=== PATIENT | male | born 1965 | race Caucasian/White ===

== ENCOUNTER 2017-06-27 20:45 | Emergency (ER) | payer MEDICARE ==
--- NOTE | 2017-06-27 21:14 | ERPHSYRPT ---
- History of Present Illness Time Seen by Provider: 06/27/17 20:47 Source: patient, family (mother) Physician History: CC: blood in urine Hx: 51 y/o patient of Dr Romo with mentally challenged. He has staff and mother is close support. He drank patti today. He had two episodes of bright red blood in the urine. No injury. No stool. No blood thinners. No hx of this in the past. Mom saw the blood in the toilet. Mild suprapubic discomfort. Some dysuria today. Timing/Duration: today Allergies/Adverse Reactions: latex [Latex] Allergy (Verified 05/28/16 20:25) BLEACH Allergy (Mild, Uncoded 05/28/16 20:25) Home Medications: Haloperidol 0.5 mg PO DAILY 05/28/16 [History] Haloperidol 1 mg [Haldol 1 mg] 1 mg PO HS 05/28/16 [History] Hydroxyzine HCl 50 mg PO HS 05/28/16 [History] Lamotrigine [Lamictal] 150 mg PO HS 05/28/16 [History] Levothyroxine Sodium 100 Mcg [Synthroid 100 Mcg] 50 mcg PO DAILY 05/28/16 [ History] Metformin HCl 500 mg [Glucophage 500 MG] 500 mg PO BID 05/28/16 [History] Omeprazole [Prilosec] 40 mg PO BID 05/28/16 [History] Rosuvastatin Calcium [Crestor] 10 mg PO HS 05/28/16 [History] Brimonidine Tartrate/Timolol [Combigan 0.2%-0.5% Eye Drops] 1 drop OP BID [History] Docusate Sodium 100 mg [Colace 100 MG] 100 mg PO BID 06/27/17 [History] Multivitamin W-Minerals/Lutein [Cerovite Silver Tablet] 1 each PO DAILY [History] Hx Tetanus, Diphtheria Vaccination/Date Given: Yes Hx Influenza Vaccination/Date Given: Yes Hx Pneumococcal Vaccination/Date Given: No - Past Medical History Pertinent Past Medical History: Yes Neurological History: Other ENT History: Other Cardiac History: No Pertinent History Respiratory History: No Pertinent History Endocrine Medical History: Diabetes Type II Musculoskeletal History: Other GI Medical History: Esophageal Disorder, GERD History: No Pertinent History Psycho-Social History: Anxiety, Depression Male Reproductive Disorders: No Pertinent History Other Medical History: 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 EXPLOSIVE DISORDER. Mild Mental Retardation. Behavior Disorder. 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 AT 2 - Social History Smoking Status: Never smoker Exposure to second hand smoke: No Alcohol Use: None Drug Use: none Patient Lives Alone: Yes Significant Family History: no pertinent family hx - Review of Systems Constitutional: No Fever, No Chills Genitourinary Symptoms: Dysuria, Hematuria, No Flank Pain Skin: No Rash Neurological: No Focal Weakness, No Parasthesia Hematologic/Lymphatic: No Blood Clots, No Easy Bleeding, No Easy Bruising All Other Systems: Reviewed and Negative - Nursing Vital Signs Nursing Vital Signs: Initial Vital Signs Temperature 97.3 F 06/27/17 20:51 Pulse Rate 85 06/27/17 20:51 Respiratory Rate 16 06/27/17 20:51 Blood Pressure 139/96 06/27/17 20:51 O2 Sat by Pulse Oximetry 97 06/27/17 20:51 Pain Scale Pain Intensity 1 - Physical Exam General Appearance: alert Ears, Nose, Throat Exam: dry mucous membranes Neck Exam: supple Respiratory Exam: normal breath sounds Cardiovascular Exam: regular rate/rhythm Gastrointestinal/Abdomen Exam: soft, No tenderness, No distention, No mass, No guarding Male Genital Exam: normal genitalia, no hernia, circumcised (nl phallus, some nonbleeding scrotal varicosities), No testicular tenderness (R), No testicular tenderness (L), No urethral discharge Extremity Exam: normal inspection, normal range of motion Neurologic Exam: alert, oriented x 3, cooperative Skin Exam: warm, dry, No rash - Course Nursing assessment & vital signs reviewed: Yes Ordered Tests: Active Orders 24 hr Category Date Time Status Clean Catch Urine Specimen STAT Care 06/27/17 20:52 Active BMP Stat Lab 06/27/17 21:25 Completed CBC W DIFF Stat Lab 12/02/17 21:25 Completed CULTURE,URINE Stat Lab 06/27/17 21:04 Received UA W/ MICROSCOPIC Stat Lab 06/27/17 21:04 Completed Lab/Rad Data: Laboratory Result Diagrams 06/27/17 21:25 06/27/17 21:25 Laboratory Results 06/27/17 06/27/17 06/27/17 Range/Units 21:25 21:25 21:04 WBC 9.2 (4.0-10.5) K/mm3 RBC 4.73 (4.1-5.6) M/mm3 Hgb 14.4 (12.5-18.0) gm/dl Hct 43.5 (42-50) % MCV 92.0 (78-100) fl MCH 30.4 (26-32) pg MCHC 33.1 (32-36) g/dl RDW 12.9 (11.5-14.0) % Plt Count 345 (150-450) K/mm3 MPV 10.2 H (6-9.5) fl Gran % 43.0 (36.0-66.0) % Lymphocytes % 44.9 H (24.0-44.0) % Monocytes % 8.2 (0.0-12.0) % Eosinophils % 3.7 (0.00-5.0) % Basophils % 0.2 (0.0-0.4) % Basophils # 0.02 (0-0.4) Sodium 141 (136-145) mEq/L Potassium 4.0 (3.5-5.1) mEq/L Chloride 103 (98-107) mEq/L Carbon Dioxide 25.2 (21-32) mEq/L Anion Gap 16.7 H (5-15) MEQ/L BUN 11 (9-20) mg/dL Creatinine 1.23 (0.55-1.30) mg/dl Estimated GFR > 60 ML/MIN Glucose 117 H (70-110) MG/DL Calcium 9.2 (8.5-10.1) mg/dL Ur Collection Type VOID Urine Color LT.YELLOW (YELLOW) Urine Appearance CLEAR (CLEAR) Urine pH 5.0 (5-6) Ur Specific [place] 1.005 (1.005-1.025) Urine Protein NEGATIVE (Negative) Urine Ketones NEGATIVE (NEGATIVE) Urine Blood 250 (0-5) Vince/ul Urine Nitrite NEGATIVE (NEGATIVE) Urine Bilirubin NEGATIVE (NEGATIVE) Urine Urobilinogen NORMAL (0-1) mg/dL Ur Leukocyte Esterase NEGATIVE (NEGATIVE) Urine Microscopic RBC 2-5 (0-2) /HPF Urine Microscopic WBC 0-2 (0-5) /HPF Ur Epithelial Cells RARE (FEW) /HPF Urine Bacteria MODERATE (NEGATIVE) /HPF Urine Culture Reflexed YES (NO) Urine Glucose NEGATIVE (NEGATIVE) mg/dL Specimen Received 06/27/17 0689 - Progress Progress Note: 06/27/17 21:54 Clear urine here. No further bleeding. Labs reviewed. Culture sent. Will release with office follow up. He was advised to see Dr Romo to consider hematuria workup. Counseled pt/family regarding: lab results, diagnosis, need for follow-up - Departure Time of Disposition: 21:55 Departure Disposition: Home Clinical Impression: Hematuria Qualifiers: Hematuria type: gross Qualified Code(s): R31.0 - Gross hematuria Condition: Stable Critical Care Time: No Referrals: JOHN ROMO [Primary Care Provider] - Instructions: Hematuria Additional Instructions: Drink plenty of no caffeine fluids. See Dr Romo next week for follow up. Call or return for fever.
[2017-06-27 21:16] LABS: ADD URINE CULTURE? YES (NO); Bacteria MODERATE /HPF (NEGATIVE); Bilirubin NEGATIVE (NEGATIVE); Blood 250 Ery/ul (0-5); COMPLETE URINE MICROSCOPIC? YES; Collection Type VOID; Epithelial Cells RARE /HPF (FEW); Glucose NEGATIVE (NEGATIVE); Leukocyte Esterase NEGATIVE (NEGATIVE); WBC 0-2 /HPF (0-5)
[2017-06-27 21:17] VITALS: BP 139/96; PULSE 85; O2SAT 97
[2017-06-27 21:28] LABS: BASOPHIL % 0.2 % (0.0-0.4); Eosinophil % 3.7 % (0.00-5.0); Lymphocytes % 44.9 % (24.0-44.0); Mean Corpuscular Hemoglobin 30.4 pg (26-32); Mean Platelet Volume 10.2 fl (6-9.5); Monocytes % 8.2 % (0.0-12.0); Platelet Count 345 K/mm3 (150-450); Red Blood Count 4.73 M/mm3 (4.1-5.6); Red Cell Distribution Width 12.9 % (11.5-14.0); White Blood Count 9.2 K/mm3 (4.0-10.5)
[2017-06-27 21:43] LABS: ANION GAP 16.7 MEQ/L (5-15); BLOOD UREA NITROGEN 11 mg/dL (9-20); CHLORIDE 103 mEq/L (98-107); Carbon Dioxide 25.2 mEq/L (21-32); Glucose 117 MG/DL (70-110); SODIUM 141 mEq/L (136-145)
[2017-06-27] MEDS ORDERED: TYLENOL 325 MG PO ONE (21:59)
[2017-06-27] MEDS ORDERED: TYLENOL 325 MG ONE (22:02)
== END 2017-06-27 22:08 | disposition home or self-care (01) ==
LOC: ED 20:45
DX: R31.0 Gross hematuria (principal); R30.0 Dysuria; Z79.899 Other long term (current) drug therapy
CPT/HCPCS: 36415; 80048; 81000; 85025; 87086; 99283; 99284; A9270-GY

== ENCOUNTER 2017-06-29 20:32 | Emergency (ER) | payer MEDICARE ==
[2017-06-29] MEDS ORDERED: Sodium Chloride 0.9% 1000 ML 1,000 ML IV STA (21:29)
--- NOTE | 2017-06-29 21:34 | ERPHSYRPT ---
- History of Present Illness Time Seen by Provider: 06/29/17 21:26 Historian: patient Exam Limitations: no limitations Patient Subjective Stated Complaint: Painful urination Triage Nursing Assessment: Hematuria on Thursday, seen here for complaint. Denies complaints between Thursday and now, onset of pain above penis, worse with urination. Physician History: This is a 51-year-old white male with history of diabetes, GERD, anxiety, depression, Patient was seen here 2 days ago secondary to hematuria. Patient states that this afternoon he began to have pain in the suprapubic area he states this was quite severe. It is worse after he urinates. Past medical history includes diabetes type 2, GERD, anxiety, depression, defect of bilateral feet, explosive disorder, mild mental retardation, dysthymic disorder left eye blind secondary to retinal detachment Past surgical history includes cholecystectomy hernia repair, tonsils, feet surgery Timing/Duration: today Activities at Onset: none Quality: aching, sharpness Abdominal Pain Onset Location: suprapubic Pain Radiation: no radiation Severity of Pain-Max: moderate Severity of Pain-Current: moderate Associated Symptoms: other (pain with urination), No back, No chest pain, No diaphoresis, No diarrhea, No fever/chills, No fatigue, No headache, No heartburn , No loss of appetite, No nausea, No neck pain, No rash, No shortness of breath , No syncope, No testicular pain, No vomiting, No weakness Previous symptoms: other (seen 2 days ago secondary to hematuria) Allergies/Adverse Reactions: latex [Latex] Allergy (Verified 05/28/16 20:25) BLEACH Allergy (Mild, Uncoded 05/28/16 20:25) Home Medications: Haloperidol 0.5 mg PO DAILY 05/28/16 [History] Haloperidol 1 mg [Haldol 1 mg] 1 mg PO HS 05/28/16 [History] Hydroxyzine HCl 50 mg PO HS 05/28/16 [History] Lamotrigine [Lamictal] 150 mg PO HS 05/28/16 [History] Levothyroxine Sodium 100 Mcg [Synthroid 100 Mcg] 50 mcg PO DAILY 05/28/16 [ History] Metformin HCl 500 mg [Glucophage 500 MG] 500 mg PO BID 05/28/16 [History] Omeprazole [Prilosec] 40 mg PO BID 05/28/16 [History] Rosuvastatin Calcium [Crestor] 10 mg PO HS 05/28/16 [History] Brimonidine Tartrate/Timolol [Combigan 0.2%-0.5% Eye Drops] 1 drop OP BID [History] Docusate Sodium 100 mg [Colace 100 MG] 100 mg PO BID 06/27/17 [History] Multivitamin W-Minerals/Lutein [Cerovite Silver Tablet] 1 each PO DAILY [History] Hx Tetanus, Diphtheria Vaccination/Date Given: Yes Hx Influenza Vaccination/Date Given: No Hx Pneumococcal Vaccination/Date Given: No Immunizations Up to Date: No - Review of Systems Constitutional: No Fever, No Chills Eyes: No Symptoms Ears, Nose, & Throat: No Symptoms Respiratory: No Cough, No Dyspnea Cardiac: No Chest Pain, No Edema, No Syncope Abdominal/Gastrointestinal: Abdominal Pain (suprapubic pain), No Nausea, No Vomiting, No Diarrhea, No Constipation, No Hematemesis, No Hematochezia, No Melena, No Dysphagia, No Appetite Changes Genitourinary Symptoms: Dysuria, Hematuria (hematuria 2 days ago), No Frequency , No Hesitancy, No Incontinence, No Urgency, No Urinary Retention, No Flank Pain , No Testicle Pain, No Penile Discharge Musculoskeletal: No Back Pain, No Neck Pain Skin: No Rash Neurological: No Dizziness, No Focal Weakness, No Sensory Changes Psychological: No Symptoms Endocrine: No Symptoms All Other Systems: Reviewed and Negative - Past Medical History Pertinent Past Medical History: Yes Neurological History: Other ENT History: Other Cardiac History: No Pertinent History Respiratory History: No Pertinent History Endocrine Medical History: Diabetes Type II Musculoskeletal History: Other GI Medical History: Esophageal Disorder, GERD History: No Pertinent History Psycho-Social History: Anxiety, Depression Male Reproductive Disorders: No Pertinent History Other Medical History: 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 EXPLOSIVE DISORDER. Mild Mental Retardation. Behavior Disorder. 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 AT 2 - Social History Smoking Status: Never smoker Exposure to second hand smoke: No Alcohol Use: None Drug Use: none Patient Lives Alone: Yes Significant Family History: no pertinent family hx - Nursing Vital Signs Nursing Vital Signs: Initial Vital Signs Temperature 97.4 F 06/29/17 20:59 Pulse Rate 88 06/29/17 20:59 Respiratory Rate 16 06/29/17 20:59 Blood Pressure 134/90 06/29/17 20:59 O2 Sat by Pulse Oximetry 96 06/29/17 20:59 Pain Scale Pain Intensity 6 - Physical Exam General Appearance: mild distress Eye Exam: PERRL/EOMI, eyes nml inspection Ears, Nose, Throat Exam: normal ENT inspection, pharynx normal, moist mucous membranes Neck Exam: normal inspection, non-tender, supple, full range of motion Respiratory Exam: normal breath sounds, lungs clear, No respiratory distress Cardiovascular Exam: regular rate/rhythm, normal heart sounds Gastrointestinal/Abdomen Exam: soft, No tenderness, No mass Male Genitalia Exam: normal genitalia Back Exam: normal inspection, normal range of motion, No CVA tenderness, No vertebral tenderness Extremity Exam: normal inspection, normal range of motion, pelvis stable Neurologic Exam: alert, oriented x 3, cooperative, normal mood/affect, nml cerebellar function, sensation nml, No motor deficits Skin Exam: normal color, warm, dry SpO2 Interpretation: normal (96%) SpO2: 96 Oxygen Delivery: Room Air - Course Nursing assessment & vital signs reviewed: Yes - CT Exams Abdomen/Pelvis CT Interpretation: Tele-radiologist Report (CT abdomen and pelvis without contrast. Impression: 1. No acute findings. 2. Mild mesenteric haziness and mildly enlarged mesenteric lymph nodes similar to prior study. 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 Irregular contour of the liver suspicious for early cirrhosis) Ordered Tests: Active Orders 24 hr Category Date Time Status IV Insertion STAT Care 06/29/17 21:29 Active ABDOMEN AND PELVIS W/0 CONTRAS [CT] Stat Exams 06/29/17 21:30 Taken AMYLASE Stat Lab 06/29/17 21:46 Completed CBC W DIFF Stat Lab 06/29/17 21:46 Completed CMP Stat Lab 06/29/17 21:46 Completed LIPASE Stat Lab 06/29/17 21:46 Completed UA W/RFX UR CULTURE Stat Lab 06/29/17 21:46 Completed Medication Summary Discontinued Medications Generic Name Dose Route Start Last Admin Trade Name Funmilayo PRN Reason Stop Dose Admin Sodium Chloride 1,000 mls @ 999 mls/hr 06/29/17 21:29 06/29/17 21:40 Sodium Chloride 0.9% 1000 Ml IV 06/29/17 22:29 999 mls/hr .Q1H1M STA Administration Sodium Chloride Confirm 06/29/17 21:36 Sodium Chloride 0.9% 1000 Ml Administered 06/29/17 21:37 Dose 1,000 mls @ ud .ROUTE .STK-MED ONE Ketorolac Tromethamine 30 mg 06/29/17 22:06 06/29/17 22:07 Toradol 30 Mg Injection IV 06/29/17 22:07 30 mg STAT ONE Administration Ketorolac Tromethamine Confirm 06/29/17 22:07 Toradol 30 Mg Injection Administered 06/29/17 22:08 Dose 30 mg .ROUTE .STK-MED ONE Lab/Rad Data: Laboratory Result Diagrams 06/29/17 21:46 06/29/17 21:46 Laboratory Results 06/29/17 06/29/17 06/29/17 Range/Units 21:46 21:46 21:46 WBC 8.7 (4.0-10.5) K/mm3 RBC 4.78 (4.1-5.6) M/mm3 Hgb 14.6 (12.5-18.0) gm/dl Hct 43.8 (42-50) % MCV 91.6 (78-100) fl MCH 30.5 (26-32) pg MCHC 33.3 (32-36) g/dl RDW 12.9 (11.5-14.0) % Plt Count 340 (150-450) K/mm3 MPV 10.3 H (6-9.5) fl Gran % 41.8 (36.0-66.0) % Lymphocytes % 46.4 H (24.0-44.0) % Monocytes % 7.9 (0.0-12.0) % Eosinophils % 3.6 (0.00-5.0) % Basophils % 0.3 (0.0-0.4) % Basophils # 0.03 (0-0.4) Sodium 139 (136-145) mEq/L Potassium 3.8 (3.5-5.1) mEq/L Chloride 102 (98-107) mEq/L Carbon Dioxide 26.5 (21-32) mEq/L Anion Gap 14.3 (5-15) MEQ/L BUN 12 (9-20) mg/dL Creatinine 1.23 (0.55-1.30) mg/dl Estimated GFR > 60 ML/MIN Glucose 102 (70-110) MG/DL Calcium 9.3 (8.5-10.1) mg/dL Total Bilirubin 0.30 (0.2-1.0) mg/dL AST 24 (15-37) U/L ALT 55 (12-78) U/L Alkaline Phosphatase 80 (46-116) U/L Serum Total Protein 9.1 H (6.4-8.2) gm/dL Albumin 4.3 (3.4-5.0) g/dL Amylase 89 (25-115) U/L Lipase 360 (73-393) U/L Ur Collection Type CLEAN CATCH Urine Color YELLOW (YELLOW) Urine Appearance CLEAR (CLEAR) Urine pH 5.0 (5-6) Ur Specific [place] 1.005 (1.005-1.025) Urine Protein NEGATIVE (Negative) Urine Ketones NEGATIVE (NEGATIVE) Urine Blood NEGATIVE (0-5) Vince/ul Urine Nitrite NEGATIVE (NEGATIVE) Urine Bilirubin NEGATIVE (NEGATIVE) Urine Urobilinogen NORMAL (0-1) mg/dL Ur Leukocyte Esterase NEGATIVE (NEGATIVE) Urine Culture Reflexed NO (NO) Urine Glucose NEGATIVE (NEGATIVE) mg/dL Specimen Received [id number] - Progress Progress: improved Progress Note: 51-year-old white male mildly mentally retarded with complaints of pain in the suprapubic pubic region symptoms since today late afternoon and early evening. Patient was seen 2 days ago secondary to hematuria. 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 Patient really does not appear to be in acute distress he received IV normal saline and Toradol Patient had labs were essentially normal. Will plan to discharge patient have him follow-up with Dr. ramirez he has an appointment in 2 days. - Departure Time of Disposition: 23:30 Departure Disposition: Home Clinical Impression: Dysuria Abdominal pain Qualifiers: Abdominal location: lower abdomen, unspecified Qualified Code(s): R10.30 - Lower abdominal pain, unspecified Condition: Fair Critical Care Time: No Referrals: JOHN RAMIREZ [Primary Care Provider] - Additional Instructions: Return home. Plenty of fluids. Clear fluids only 24-48 hours if abdominal pain. Tylenol every 4 hours as needed for pain. Motrin every 6 hours as needed for pain Follow-up with Dr. Ramirez as scheduled sooner if worse. Return for acute distress or for severe symptoms.
[2017-06-29] MEDS ORDERED: Sodium Chloride 0.9% 1000 ML 1,000 ML ONE (21:36)
[2017-06-29 21:49] LABS: ADD URINE CULTURE? NO (NO); BASOPHIL % 0.3 % (0.0-0.4); Bilirubin NEGATIVE (NEGATIVE); Blood NEGATIVE Ery/ul (0-5); COMPLETE URINE MICROSCOPIC? NO; Collection Type CLEAN CATCH; Eosinophil % 3.6 % (0.00-5.0); Glucose NEGATIVE (NEGATIVE); Granulocytes % 41.8 % (36.0-66.0); Leukocyte Esterase NEGATIVE (NEGATIVE); Lymphocytes % 46.4 % (24.0-44.0); Mean Cell Volume 91.6 fl (78-100); Mean Corpuscular Hemoglobin 30.5 pg (26-32); Mean Platelet Volume 10.3 fl (6-9.5); Monocytes % 7.9 % (0.0-12.0); Platelet Count 340 K/mm3 (150-450); Red Blood Count 4.78 M/mm3 (4.1-5.6); Red Cell Distribution Width 12.9 % (11.5-14.0); White Blood Count 8.7 K/mm3 (4.0-10.5)
[2017-06-29] MEDS ORDERED: TORAdol 30 mg Injection IV ONE (22:06)
[2017-06-29] MEDS ORDERED: TORAdol 30 mg Injection ONE (22:07)
[2017-06-29 22:31] LABS: ALBUMIN 4.3 g/dL (3.4-5.0); ALKALINE PHOSPHATASE 80 U/L (46-116); ANION GAP 14.3 MEQ/L (5-15); BLOOD UREA NITROGEN 12 mg/dL (9-20); CHLORIDE 102 mEq/L (98-107); Carbon Dioxide 26.5 mEq/L (21-32); Glucose 102 MG/DL (70-110); LIPASE 360 U/L (73-393); Potassium 3.8 mEq/L (3.5-5.1); SGOT/AST 24 U/L (15-37); SGPT/ALT 55 U/L (12-78); SODIUM 139 mEq/L (136-145); Total Protein 9.1 gm/dL (6.4-8.2)
[2017-06-29 23:26] VITALS: BP 140/70; PULSE 78
[2017-06-29 23:30] VITALS: O2SAT 96
--- NOTE | 2017-06-30 08:58 | XRAY ---
Indication: Right lower quadrant/suprapubic pain. Hematuria. Multiple contiguous axial images obtained through the abdomen and pelvis without contrast using renal stone protocol. Comparison: March 31, 2011. Lung bases again demonstrates minimal scattered fibrosis/scarring and right middle lobe calcified granulomas. No infiltrate or effusion. Heart is not enlarged. No renal calculus or evidence for obstructive uropathy in either system. Noncontrasted stomach and bowel loops appear nonobstructed. Minimal descending/sigmoid diverticulosis without diverticulitis. Normal appendix. No free fluid/air. Again calcified hepatic/splenic granulomas and cholecystectomy clips. There are again scattered small subcentimeter mesenteric nodes with minimal stranding, possible adenitis. Remaining liver, pancreas, spleen, adrenal glands, kidneys, ureters, bladder, and aorta appear unremarkable for noncontrast exam. Osseous structures intact. Impression: 1. Negative renal calculus or evidence for obstructive uropathy in either system. 2. Stable small scattered mesenteric nodes with minimal stranding possibly adenitis. 3. Minimal colonic diverticulosis without diverticulitis. 4. No acute intra-abdominal/pelvic abnormalities on this noncontrast exam. Comment: Preliminary interpretation was made by [facility]. No critical discrepancy. CT DI 22.93
== END 2017-06-29 23:42 | disposition home or self-care (01) ==
LOC: ED 20:32
DX: R10.30 Lower abdominal pain, unspecified (principal); E11.9 Type 2 diabetes mellitus without complications; Z79.84 Long term (current) use of oral hypoglycemic drugs; Z79.899 Other long term (current) drug therapy
CPT/HCPCS: 36000; 36415; 74176; 80053; 81002; 82150; 83690; 85025; 96360; 96374; 99284; J1885

== ENCOUNTER 2017-07-02 03:02 | Emergency (ER) | payer MEDICARE ==
[2017-07-02] MEDS ORDERED: Pepcid 20 MG VIAL IV ONE ×2 (03:32→03:43)
[2017-07-02] MEDS: Zofran 4 MG/2 ML VIAL IV ONE ×2 (03:32→03:45)
[2017-07-02] MEDS ORDERED: TORAdol 30 mg Injection IV ONE (03:32)
[2017-07-02] MEDS ORDERED: Sodium Chloride 0.9% 1000 ML 1,000 ML IV STA (03:32)
[2017-07-02] MEDS ORDERED: TORAdol 30 mg Injection ONE (03:43)
[2017-07-02] MEDS ORDERED: Zofran 4 MG/2 ML VIAL ONE (03:43)
[2017-07-02] MEDS ORDERED: Sodium Chloride 0.9% 1000 ML 1,000 ML ONE (03:43)
--- NOTE | 2017-07-02 03:58 | ERPHSYRPT ---
- History of Present Illness Time Seen by Provider: 07/02/17 03:25 Historian: patient, other (mother) Exam Limitations: other (mentally challenged) Patient Subjective Stated Complaint: Abdominal Pain Triage Nursing Assessment: Lower abdominal pain since thursday. Seen twice previously for complaint, seen by PCP 07/01/17 for same. Denies new symptoms. States "hurts really bad." A&O x4, no other complaints. Physician History: Pt has been c/o recurrent lower abdominal sharp pain, cramps x 5 days. First he had blood in his urine, but it cleared later, his mother gives his history since he has been mentally challenged. He is nauseated, but denies vomiting, diarrhea, bloody, black stools, no fever, chills or other complaints, no testicular pain or swelling, no injury. He was seen here 3 days ago, non contrast CT abdomen and pelvis was negative. Timing/Duration: day(s) (5) Activities at Onset: none Quality: stabbing Abdominal Pain Onset Location: RLQ, LLQ, suprapubic Pain Radiation: no radiation Severity of Pain-Max: severe Severity of Pain-Current: mild Modifying Factors: Improves With: nothing Associated Symptoms: nausea Previous symptoms: no prior history Body Map: 1 - diffuse, infraumbilical pain on both sides Allergies/Adverse Reactions: latex [Latex] Allergy (Verified 05/28/16 20:25) BLEACH Allergy (Mild, Uncoded 05/28/16 20:25) Home Medications: Haloperidol 0.5 mg PO DAILY 05/28/16 [History] Haloperidol 1 mg [Haldol 1 mg] 1 mg PO HS 05/28/16 [History] Hydroxyzine HCl 50 mg PO HS 05/28/16 [History] Lamotrigine [Lamictal] 150 mg PO HS 05/28/16 [History] Levothyroxine Sodium 100 Mcg [Synthroid 100 Mcg] 50 mcg PO DAILY 05/28/16 [ History] Metformin HCl 500 mg [Glucophage 500 MG] 500 mg PO BID 05/28/16 [History] Omeprazole [Prilosec] 40 mg PO BID 05/28/16 [History] Rosuvastatin Calcium [Crestor] 10 mg PO HS 05/28/16 [History] Brimonidine Tartrate/Timolol [Combigan 0.2%-0.5% Eye Drops] 1 drop OP BID [History] Docusate Sodium 100 mg [Colace 100 MG] 100 mg PO BID 06/27/17 [History] Multivitamin W-Minerals/Lutein [Cerovite Silver Tablet] 1 each PO DAILY [History] Hx Tetanus, Diphtheria Vaccination/Date Given: Yes Hx Influenza Vaccination/Date Given: No Hx Pneumococcal Vaccination/Date Given: No Immunizations Up to Date: No - Review of Systems Constitutional: No Symptoms Abdominal/Gastrointestinal: Abdominal Pain, Nausea All Other Systems: Reviewed and Negative - Past Medical History Pertinent Past Medical History: Yes Neurological History: Other ENT History: Other Cardiac History: No Pertinent History Respiratory History: No Pertinent History Endocrine Medical History: Diabetes Type II Musculoskeletal History: Other GI Medical History: Esophageal Disorder, GERD History: No Pertinent History Psycho-Social History: Anxiety, Depression Male Reproductive Disorders: No Pertinent History Other Medical History: 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 EXPLOSIVE DISORDER. Mild Mental Retardation. Behavior Disorder. 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 AT 2 - Social History Smoking Status: Never smoker Exposure to second hand smoke: No Alcohol Use: None Drug Use: none Patient Lives Alone: Yes Significant Family History: no pertinent family hx - Nursing Vital Signs Nursing Vital Signs: Initial Vital Signs Temperature 97.8 F 07/02/17 03:09 Pulse Rate 77 07/02/17 03:09 Respiratory Rate 15 07/02/17 03:09 Blood Pressure 145/99 07/02/17 03:09 O2 Sat by Pulse Oximetry 97 07/02/17 03:09 Pain Scale Pain Intensity 7 - Physical Exam General Appearance: no apparent distress Eye Exam: eyes nml inspection Ears, Nose, Throat Exam: normal ENT inspection Neck Exam: normal inspection, non-tender Respiratory Exam: normal breath sounds, lungs clear Cardiovascular Exam: regular rate/rhythm, normal heart sounds, normal peripheral pulses, No murmur Gastrointestinal/Abdomen Exam: soft, normal bowel sounds, tenderness (diffuse, bilateral pelvic, lower abdominal) Male Genitalia Exam: normal genitalia, prostate tenderness, prostate enlargement , No hernia, No testicular tenderness, No testicular mass, No penile lesion, No penile discharge Rectal Exam: normal exam, normal rectal tone, No mass, No black stool, No blood , No tenderness Extremity Exam: normal inspection Neurologic Exam: alert, cooperative, normal mood/affect Skin Exam: normal color, warm, dry, No rash Lymphatic Exam: No adenopathy SpO2: 97 Oxygen Delivery: Room Air - Course Nursing assessment & vital signs reviewed: Yes Ordered Tests: Active Orders 24 hr Category Date Time Status Clean Catch Urine Specimen STAT Care 07/02/17 03:31 Active IV Insertion STAT Care 07/02/17 03:54 Active ABDOMEN AND PELVIS W CONTRAST [CT] Stat Exams 07/02/17 03:32 Taken CBC W DIFF Stat Lab 07/02/17 03:47 Completed CMP Stat Lab 07/02/17 03:47 Completed CULTURE,URINE Stat Lab 07/02/17 03:47 Received LIPASE Stat Lab 07/02/17 03:47 Completed Occult Blood,Stool Other Stat Lab 07/02/17 05:04 Uncollected UA W/ MICROSCOPIC Stat Lab 07/02/17 03:47 Completed Medication Summary Discontinued Medications Generic Name Dose Route Start Last Admin Trade Name Freq PRN Reason Stop Dose Admin Famotidine 20 mg 07/02/17 03:32 07/02/17 03:45 Pepcid 20 Mg Vial IV 07/02/17 03:33 20 mg STAT ONE Administration Famotidine Confirm 07/02/17 03:43 Pepcid 20 Mg Vial Administered 07/02/17 03:44 Dose 20 mg IV .STK-MED ONE Sodium Chloride 1,000 mls @ 999 mls/hr 07/02/17 03:32 07/02/17 03:45 Sodium Chloride 0.9% 1000 Ml IV 07/02/17 04:32 999 mls/hr .Q1H1M STA Administration Sodium Chloride Confirm 07/02/17 03:43 Sodium Chloride 0.9% 1000 Ml Administered 07/02/17 03:44 Dose 1,000 mls @ ud .ROUTE .STK-MED ONE Ketorolac Tromethamine 30 mg 07/02/17 03:32 07/02/17 03:45 Toradol 30 Mg Injection IV 07/02/17 03:33 30 mg STAT ONE Administration Ketorolac Tromethamine Confirm 07/02/17 03:43 Toradol 30 Mg Injection Administered 07/02/17 03:44 Dose 30 mg .ROUTE .STK-MED ONE Levofloxacin 750 mg 07/02/17 05:07 07/02/17 05:12 Levofloxacin 250mg Tablet PO 07/02/17 05:08 750 mg STAT ONE Administration Levofloxacin Confirm 07/02/17 05:10 Levofloxacin 250mg Tablet Administered 07/02/17 05:11 Dose 750 mg .ROUTE .STK-MED ONE Ondansetron HCl 4 mg 07/02/17 03:32 07/02/17 03:45 Zofran 4 Mg/2 Ml Vial IV 07/02/17 03:33 4 mg STAT ONE Administration Ondansetron HCl Confirm 07/02/17 03:43 Zofran 4 Mg/2 Ml Vial Administered 07/02/17 03:44 Dose 4 mg .ROUTE .STK-MED ONE Phenazopyridine HCl 200 mg 07/02/17 05:08 07/02/17 05:12 Pyridium 200 Mg PO 07/02/17 05:09 200 mg NOW ONE Administration Phenazopyridine HCl Confirm 07/02/17 05:10 Pyridium 200 Mg Administered 07/02/17 05:11 Dose 200 mg .ROUTE .STK-MED ONE Lab/Rad Data: Laboratory Result Diagrams 07/02/17 03:47 07/02/17 03:47 Laboratory Results 07/02/17 07/02/17 07/02/17 Range/Units 05:08 03:47 03:47 WBC 10.8 H (4.0-10.5) K/mm3 RBC 4.57 (4.1-5.6) M/mm3 Hgb 13.9 (12.5-18.0) gm/dl Hct 42.5 (42-50) % MCV 93.0 (78-100) fl MCH 30.4 (26-32) pg MCHC 32.7 (32-36) g/dl RDW 12.9 (11.5-14.0) % Plt Count 325 (150-450) K/mm3 MPV 10.6 H (6-9.5) fl Gran % 76.6 H (36.0-66.0) % Lymphocytes % 18.3 L (24.0-44.0) % Monocytes % 4.5 (0.0-12.0) % Eosinophils % 0.4 (0.00-5.0) % Basophils % 0.2 (0.0-0.4) % Basophils # 0.02 (0-0.4) Sodium 139 (136-145) mEq/L Potassium 4.1 (3.5-5.1) mEq/L Chloride 104 (98-107) mEq/L Carbon Dioxide 24.1 (21-32) mEq/L Anion Gap 14.9 (5-15) MEQ/L BUN 14 (9-20) mg/dL Creatinine 1.38 H (0.55-1.30) mg/dl Estimated GFR 58 ML/MIN Glucose 145 H (70-110) MG/DL Calcium 9.3 (8.5-10.1) mg/dL Total Bilirubin 0.40 (0.2-1.0) mg/dL AST 23 (15-37) U/L ALT 55 (12-78) U/L Alkaline Phosphatase 70 (46-116) U/L Serum Total Protein 8.8 H (6.4-8.2) gm/dL Albumin 4.1 (3.4-5.0) g/dL Lipase 227 (73-393) U/L Ur Collection Type Urine Color (YELLOW) Urine Appearance (CLEAR) Urine pH (5-6) Ur Specific [place] (1.005-1.025) Urine Protein (Negative) Urine Ketones (NEGATIVE) Urine Blood (0-5) Vince/ul Urine Nitrite (NEGATIVE) Urine Bilirubin (NEGATIVE) Urine Urobilinogen (0-1) mg/dL Ur Leukocyte Esterase (NEGATIVE) Urine Microscopic RBC (0-2) /HPF Urine Microscopic WBC (0-5) /HPF Ur Epithelial Cells (FEW) /HPF Urine Bacteria (NEGATIVE) /HPF Urine Mucus (NEGATIVE) /HPF Urine Culture Reflexed (NO) Urine Glucose (NEGATIVE) mg/dL Stool Occult Blood NEGATIVE (Negative) Specimen Received 07/02/17 Range/Units 03:47 WBC (4.0-10.5) K/mm3 RBC (4.1-5.6) M/mm3 Hgb (12.5-18.0) gm/dl Hct (42-50) % MCV (78-100) fl MCH (26-32) pg MCHC (32-36) g/dl RDW (11.5-14.0) % Plt Count (150-450) K/mm3 MPV (6-9.5) fl Gran % (36.0-66.0) % Lymphocytes % (24.0-44.0) % Monocytes % (0.0-12.0) % Eosinophils % (0.00-5.0) % Basophils % (0.0-0.4) % Basophils # (0-0.4) Sodium (136-145) mEq/L Potassium (3.5-5.1) mEq/L Chloride (98-107) mEq/L Carbon Dioxide (21-32) mEq/L Anion Gap (5-15) MEQ/L BUN (9-20) mg/dL Creatinine (0.55-1.30) mg/dl Estimated GFR ML/MIN Glucose (70-110) MG/DL Calcium (8.5-10.1) mg/dL Total Bilirubin (0.2-1.0) mg/dL AST (15-37) U/L ALT (12-78) U/L Alkaline Phosphatase (46-116) U/L Serum Total Protein (6.4-8.2) gm/dL Albumin (3.4-5.0) g/dL Lipase (73-393) U/L Ur Collection Type VOID Urine Color YELLOW (YELLOW) Urine Appearance CLEAR (CLEAR) Urine pH 6.0 (5-6) Ur Specific [place] 1.015 (1.005-1.025) Urine Protein 30 (Negative) Urine Ketones MODERATE (NEGATIVE) Urine Blood 250 (0-5) Vince/ul Urine Nitrite NEGATIVE (NEGATIVE) Urine Bilirubin NEGATIVE (NEGATIVE) Urine Urobilinogen NORMAL (0-1) mg/dL Ur Leukocyte Esterase NEGATIVE (NEGATIVE) Urine Microscopic RBC 10-15 (0-2) /HPF Urine Microscopic WBC 2-5 (0-5) /HPF Ur Epithelial Cells RARE (FEW) /HPF Urine Bacteria FEW (NEGATIVE) /HPF Urine Mucus MODERATE (NEGATIVE) /HPF Urine Culture Reflexed YES (NO) Urine Glucose NEGATIVE (NEGATIVE) mg/dL Stool Occult Blood (Negative) Specimen Received 07/02/17 0350 - Progress Progress: improved Progress Note: 07/02/17 05:22 Pt vomited once after arrival, improved after iv. fluids, and Zofran, Toradol, afebrile, CT abdomen, pelvis: negative ( with iv contrast), explained findings to his mother, huma asked her to do not give him Metformin for 48 hours. She understood, and will follow up with his PCP and Urologist. Postvoid catheter urine: 20 ml, clear. Prostate was painful on exam, enlarged, but even surfaced. - Departure Time of Disposition: 07:00 Departure Disposition: Home Clinical Impression: Prostatitis, acute Condition: Stable Critical Care Time: No Referrals: JOHN ROMO [Primary Care Provider] - Instructions: Abdominal Pain-Adult, Benign Prostatic Hyperplasia Additional Instructions: Drink plenty of fluids, avoid Metformin for 48 hours, follow up with your PCP and Urologist next week, return if severe pain, vomiting, fever> 102 F or unable to urinate!
[2017-07-02 04:07] LABS: ADD URINE CULTURE? YES (NO); Bacteria FEW /HPF (NEGATIVE); Bilirubin NEGATIVE (NEGATIVE); Blood 250 Ery/ul (0-5); COMPLETE URINE MICROSCOPIC? YES; Collection Type VOID; Epithelial Cells RARE /HPF (FEW); Glucose NEGATIVE (NEGATIVE); Leukocyte Esterase NEGATIVE (NEGATIVE); Mucus MODERATE /HPF (NEGATIVE)
[2017-07-02 04:14] LABS: BASOPHIL % 0.2 % (0.0-0.4); Eosinophil % 0.4 % (0.00-5.0); Granulocytes % 76.6 % (36.0-66.0); Lymphocytes % 18.3 % (24.0-44.0); Mean Corpuscular Hemoglobin 30.4 pg (26-32); Mean Platelet Volume 10.6 fl (6-9.5); Monocytes % 4.5 % (0.0-12.0); Platelet Count 325 K/mm3 (150-450); Red Blood Count 4.57 M/mm3 (4.1-5.6); Red Cell Distribution Width 12.9 % (11.5-14.0); White Blood Count 10.8 K/mm3 (4.0-10.5)
[2017-07-02 04:15] LABS: ALBUMIN 4.1 g/dL (3.4-5.0); ANION GAP 14.9 MEQ/L (5-15); BILIRUBIN,TOTAL 0.4 mg/dL (0.2-1.0); Carbon Dioxide 24.1 mEq/L (21-32); Potassium 4.1 mEq/L (3.5-5.1); Total Protein 8.8 gm/dL (6.4-8.2)
[2017-07-02] MEDS ORDERED: PYRIDIUM 200 MG ONE (05:10)
[2017-07-02] MEDS ORDERED: Levofloxacin 250MG Tablet ONE (05:10)
[2017-07-02] MEDS: PYRIDIUM 200 MG PO ONE ×2 (05:12→05:45)
[2017-07-02] MEDS: Levofloxacin 250MG Tablet PO ONE ×2 (05:12→05:45)
[2017-07-02] MEDS ORDERED: LEVOFLOXACIN 750MG/150ML D5W 750 MG/150 ML BAG IV STA (05:29)
[2017-07-02] MEDS ORDERED: TYLENOL EXTRA STRENGTH 500 MG PO STA (07:05)
[2017-07-02] MEDS ORDERED: TYLENOL EXTRA STRENGTH 500 MG ONE (07:07)
[2017-07-02 07:17] VITALS: BP 133/80; PULSE 70; O2SAT 98
--- NOTE | 2017-07-02 08:59 | XRAY ---
Indication: Lower abdominal pain. Nausea and vomiting. Multiple contiguous axial images obtained through the abdomen and pelvis using 80 cc Isovue 370 contrast only. Comparison: Noncontrast exam 3 days ago. Lung bases again demonstrates minimal scattered fibrosis/scarring and right middle lobe calcified granulomas. No infiltrate or effusion. Heart is not enlarged. Noncontrasted stomach and bowel loops remain nonobstructed with stable minimal scattered colonic diverticulosis again without diverticulitis. Normal appendix. No free fluid/air. Again a few calcified hepatic/splenic granulomas, previous cholecystectomy, and left inguinal hernia repair. There are again scattered small subcentimeter mesenteric nodes with minimal stranding, possible adenitis. Remaining liver, pancreas, spleen, adrenal glands, kidneys, ureters, bladder, and aorta appear unremarkable. Osseous structures intact. Impression: 1. Stable colonic diverticulosis without diverticulitis. 2. Stable small scattered mesenteric nodes with minimal stranding possibly adenitis. 3. No new/acute intra-abdominal/pelvic abnormalities. Comment: Preliminary interpretation was made by [facility]. No critical discrepancy. CT DI 22.16
== END 2017-07-02 07:17 | disposition home or self-care (01) ==
LOC: ED 03:02
DX: N41.9 Inflammatory disease of prostate, unspecified (principal); R11.0 Nausea; R10.32 Left lower quadrant pain; R10.31 Right lower quadrant pain; Z79.899 Other long term (current) drug therapy; Z79.84 Long term (current) use of oral hypoglycemic drugs; E11.9 Type 2 diabetes mellitus without complications; F70 Mild intellectual disabilities
CPT/HCPCS: 96374; 99284; 36000; 96375; 81000; 36415; 82272; 83690; 85025; 80053; 87086; 74177; P9612; J1885; J1956; J2405; A9270-GY

== ENCOUNTER 2017-10-28 22:48 | Emergency (ER) | payer MEDICARE ==
[2017-10-28 23:31] VITALS: BP 141/92; PULSE 88; O2SAT 98
--- NOTE | 2017-10-29 00:01 | ERPHSYRPT ---
- History of Present Illness Time Seen by Provider: 10/28/17 23:34 Source: patient Exam Limitations: clinical condition Patient Subjective Stated Complaint: 2 episodes of hematuria this evening. urine clear at present Triage Nursing Assessment: alert and oriented.complaint of hematuria. denies injury of putting somehitn in his penis. states buring when he goes. Physician History: PATIENT WITH A HISTORY OF HEMATURIA 06/2017 COMPLAINS OF HEMATURIA ASSOCIATED WITH DYSURIA TONIGHT, DENIES FEVER, CHILLS, PENILE PAIN, ABDOMINAL PAIN OR URETHRAL DISCHARGE Timing/Duration: today Activites at Onset: none Quality: burning Onset Location: other (URETHRA) Pain Radiation: none Severity of Pain-Max: moderate Severity of Pain-Current: none Modifying Factors: Improves With: other (URINATION) Associated Symptoms: denies symptoms Prior abdominal problems: similar symptoms Sexual intercourse history: non-contributory Allergies/Adverse Reactions: latex [Latex] Allergy (Verified 10/28/17 23:31) BLEACH Allergy (Mild, Uncoded 10/28/17 23:31) Home Medications: Haloperidol 0.5 mg PO DAILY 05/28/16 [History] Haloperidol 1 mg [Haldol 1 mg] 1 mg PO HS 05/28/16 [History] Hydroxyzine HCl 50 mg PO HS 05/28/16 [History] Lamotrigine [Lamictal] 150 mg PO HS 05/28/16 [History] Levothyroxine Sodium 100 Mcg [Synthroid 100 Mcg] 50 mcg PO DAILY 05/28/16 [ History] Metformin HCl 500 mg [Glucophage 500 MG] 500 mg PO BID 05/28/16 [History] Omeprazole [Prilosec] 40 mg PO BID 05/28/16 [History] Rosuvastatin Calcium [Crestor] 10 mg PO HS 05/28/16 [History] Brimonidine Tartrate/Timolol [Combigan 0.2%-0.5% Eye Drops] 1 drop OP BID [History] Docusate Sodium 100 mg [Colace 100 MG] 100 mg PO BID 06/27/17 [History] Multivitamin W-Minerals/Lutein [Cerovite Silver Tablet] 1 each PO DAILY [History] Hx Tetanus, Diphtheria Vaccination/Date Given: Yes Hx Influenza Vaccination/Date Given: No Hx Pneumococcal Vaccination/Date Given: No - Past Medical History Pertinent Past Medical History: Yes Neurological History: Other ENT History: Other Cardiac History: No Pertinent History Respiratory History: No Pertinent History Endocrine Medical History: Diabetes Type II Musculoskeletal History: Other GI Medical History: Esophageal Disorder, GERD History: No Pertinent History Psycho-Social History: Anxiety, Depression Male Reproductive Disorders: No Pertinent History Other Medical History: 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 EXPLOSIVE DISORDER. Mild Mental Retardation. Behavior Disorder. 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 AT 2 - Social History Smoking Status: Never smoker Exposure to second hand smoke: No Alcohol Use: None Drug Use: none Patient Lives Alone: No Significant Family History: no pertinent family hx - Review of Systems Constitutional: No Fever, No Chills Eyes: No Symptoms Ears, Nose, & Throat: No Symptoms Respiratory: No Cough, No Dyspnea Cardiac: No Chest Pain, No Edema, No Syncope Abdominal/Gastrointestinal: No Abdominal Pain, No Nausea, No Vomiting, No Diarrhea Genitourinary Symptoms: Dysuria, Hematuria Musculoskeletal: No Back Pain, No Neck Pain Skin: No Rash Neurological: No Dizziness, No Focal Weakness, No Sensory Changes Psychological: No Symptoms Endocrine: No Symptoms All Other Systems: Reviewed and Negative - Nursing Vital Signs Nursing Vital Signs: Initial Vital Signs Temperature 97.6 F 10/28/17 23:24 Pulse Rate 88 10/28/17 23:24 Respiratory Rate 16 10/28/17 23:24 Blood Pressure 141/92 10/28/17 23:24 O2 Sat by Pulse Oximetry 98 10/28/17 23:24 Pain Scale Pain Intensity 0 - Physical Exam General Appearance: no apparent distress, alert Eye Exam: PERRL/EOMI Ears, Nose, Throat Exam: pharynx normal, moist mucous membranes Neck Exam: normal inspection, supple Respiratory Exam: normal breath sounds, lungs clear Cardiovascular Exam: regular rate/rhythm, No edema Gastrointestinal/Abdomen Exam: soft, No tenderness Male Genital Exam: normal genitalia, no hernia (NO SCROTAL TENDERNESS) Back Exam: normal inspection, No CVA tenderness Extremity Exam: normal inspection, normal range of motion, No pedal edema Neurologic Exam: alert, oriented x 3, cooperative, sensation nml, No motor deficits Skin Exam: normal color, warm, dry, No rash SpO2 Interpretation: normal SpO2: 98 Oxygen Delivery: Room Air Ordered Tests: Active Orders 24 hr Category Date Time Status UA W/ MICROSCOPIC Stat Lab 10/28/17 23:55 Completed Lab/Rad Data: Laboratory Results 10/28/17 Range/Units 23:55 Ur Collection Type CLEAN CATCH Urine Color YELLOW (YELLOW) Urine Appearance CLEAR (CLEAR) Urine pH 5.0 (5-6) Ur Specific [place] 1.005 (1.005-1.025) Urine Protein NEGATIVE (Negative) Urine Ketones NEGATIVE (NEGATIVE) Urine Blood TRACE NON-HEM (0-5) Vince/ul Urine Nitrite NEGATIVE (NEGATIVE) Urine Bilirubin NEGATIVE (NEGATIVE) Urine Urobilinogen NORMAL (0-1) mg/dL Ur Leukocyte Esterase NEGATIVE (NEGATIVE) Urine Microscopic RBC 2-5 (0-2) /HPF Ur Epithelial Cells RARE (FEW) /HPF Urine Bacteria RARE (NEGATIVE) /HPF Urine Culture Reflexed NO (NO) Urine Glucose NEGATIVE (NEGATIVE) mg/dL Specimen Received 10/28/17 2355 - Progress Counseled pt/family regarding: lab results, need for follow-up - Departure Time of Disposition: 00:40 Departure Disposition: Home Clinical Impression: MICROHEMATURIA Condition: Stable Critical Care Time: No Referrals: JOHN ROMO [Primary Care Provider] - Additional Instructions: STRAIN URINE USING A STRAINER FOR 1 WEEK . PYRIDIUM 100 MG AFTER MEALS FOR 2 DAYS. CONSULT YOUR UROLOGIST FOR FOLLOWUP. Prescriptions: Phenazopyridine HCl [Pyridium] 100 mg PO TIDWMEALS #6 tablet
[2017-10-29 00:10] LABS: Appearance CLEAR (CLEAR)
[2017-10-29 00:11] LABS: Bilirubin NEGATIVE (NEGATIVE); Blood TRACE NON-HEM Ery/ul (0-5); Glucose NEGATIVE (NEGATIVE); Ketones NEGATIVE (NEGATIVE); Leukocyte Esterase NEGATIVE (NEGATIVE); Nitrite NEGATIVE (NEGATIVE); Protein,Urine Dip NEGATIVE (Negative); Specific Gravity 1.005 (1.005-1.025); Urobilinogen NORMAL mg/dL (0-1)
[2017-10-29 00:12] LABS: Bacteria RARE /HPF (NEGATIVE); Epithelial Cells RARE /HPF (FEW)
[2017-10-29] MEDS ORDERED: PYRIDIUM 200 MG PO ONE (01:05)
[2017-10-29] MEDS ORDERED: PYRIDIUM 200 MG ONE (01:07)
== END 2017-10-29 01:10 | disposition home or self-care (01) ==
LOC: ED 22:48
DX: R31.29 Other microscopic hematuria (principal); R30.0 Dysuria; Z79.899 Other long term (current) drug therapy
CPT/HCPCS: 81000; 99283; 99284; A9270-GY

== ENCOUNTER 2018-09-02 15:33 | Emergency (ER) | payer MEDICARE ==
[2018-09-02 15:49] VITALS: O2SAT 98
--- NOTE | 2018-09-02 16:17 | ERPHSYRPT ---
- History of Present Illness Time Seen by Provider: 09/02/18 16:06 Source: patient Exam Limitations: no limitations Patient Subjective Stated Complaint: Pt states "I was walking into [facility] and slipped on the floor and hurt my right knee." Triage Nursing Assessment: Pt alert and oriented X 3, skin pwd. Pt ambulates with a limp. Pt able to speak in clear full sentences. Pt wears speacial shoes for foot defromities. Physician History: 52-year-old white male arrives with complaint of pain in his right knee symptoms since just prior to arrival. According to patient he was at [facility] he slipped and fell injuring his right knee states he has pain in his right knee located anteriorly he feels like he twisted his knee. He denies any other injury. 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 Past surgical history includes cholecystectomy, hernia repair, tonsillectomy, feet surgery, amputation of the large toe Social history patient denies tobacco or alcohol use Method of Injury: fell Occurred: just prior to arrival Quality: aching Severity of Pain-Max: moderate Severity of Pain-Current: mild Lower Extremities Pain: knee: right Modifying Factors: Improves With: other (pain with walking right knee) Allergies/Adverse Reactions: latex [Latex] Allergy (Verified 10/28/17 23:31) BLEACH Allergy (Mild, Uncoded 10/28/17 23:31) Home Medications: Haloperidol 0.5 mg PO DAILY 05/28/16 [History] Haloperidol 1 mg [Haldol 1 mg] 1 mg PO HS 05/28/16 [History] Hydroxyzine HCl 50 mg PO HS 05/28/16 [History] Levothyroxine Sodium 100 Mcg [Synthroid 100 Mcg] 50 mcg PO DAILY 05/28/16 [ History] Omeprazole [Prilosec] 40 mg PO BID 05/28/16 [History] Rosuvastatin Calcium [Crestor] 10 mg PO HS 05/28/16 [History] Brimonidine Tartrate/Timolol [Combigan 0.2%-0.5% Eye Drops] 1 drop OP BID [History] Docusate Sodium 100 mg [Colace 100 MG] 100 mg PO BID 06/27/17 [History] Multivitamin W-Minerals/Lutein [Cerovite Silver Tablet] 1 each PO DAILY [History] Lamotrigine [Lamictal] 150 mg PO HS 09/02/18 [History] Hx Tetanus, Diphtheria Vaccination/Date Given: No Hx Influenza Vaccination/Date Given: No Hx Pneumococcal Vaccination/Date Given: No Immunizations Up to Date: Yes - Review of Systems Constitutional: No Fever, No Chills Eyes: No Symptoms Ears, Nose, & Throat: No Symptoms Respiratory: No Cough, No Dyspnea Cardiac: No Chest Pain, No Edema, No Syncope Abdominal/Gastrointestinal: No Abdominal Pain, No Nausea, No Vomiting, No Diarrhea Genitourinary Symptoms: No Dysuria Musculoskeletal: Other (right knee pain) Skin: No Rash Neurological: No Dizziness, No Focal Weakness, No Sensory Changes Psychological: No Symptoms Endocrine: No Symptoms All Other Systems: Reviewed and Negative - Past Medical History Pertinent Past Medical History: Yes Neurological History: Other ENT History: Other Cardiac History: No Pertinent History Respiratory History: No Pertinent History Endocrine Medical History: Diabetes Type II Musculoskeletal History: Other GI Medical History: Esophageal Disorder, GERD History: No Pertinent History Psycho-Social History: Anxiety, Depression Male Reproductive Disorders: No Pertinent History Other Medical History: 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 EXPLOSIVE DISORDER. Mild Mental Retardation. Behavior Disorder. 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 AT 2 - Social History Smoking Status: Never smoker Exposure to second hand smoke: No Alcohol Use: None Drug Use: none Patient Lives Alone: Yes Significant Family History: no pertinent family hx - Nursing Vital Signs Nursing Vital Signs: Initial Vital Signs Temperature 97.6 F 09/02/18 15:42 Pulse Rate 79 09/02/18 15:42 Respiratory Rate 18 09/02/18 15:42 Blood Pressure 107/75 09/02/18 15:42 O2 Sat by Pulse Oximetry 98 09/02/18 15:42 Pain Scale Pain Intensity 6 - Physical Exam General Appearance: alert Eyes, Ears, Nose, Throat Exam: moist mucous membranes Neck Exam: non-tender, supple Cardiovascular/Respiratory Exam: chest non-tender, normal breath sounds, regular rate/rhythm, no respiratory distress Gastrointestinal/Abdominal Exam: non-tender, guarding Back Exam: normal inspection, No vertebral tenderness Hips Exam: bilateral: non-tender, normal inspection, normal range of motion, no evidence of injury Legs Exam: bilateral leg: non-tender, normal inspection, normal range of motion , no evidence of injury Knees Exam: right knee: other (tenderness with palpation and movement right anterior knee. Right knee stable to anterior drawer sign , posterior drawer sign , MCL stress, LCL stress.), left knee: non-tender, normal inspection, no evidence of injury, bilateral knee: normal range of motion Ankle Exam: bilateral ankle: non-tender, other (patient with chronic deformity bilateral feet and ankle) Foot Exam: bilateral foot: other (patient with chronic defomity bilateral feet and ankle) Neuro/Tendon Exam: normal sensation, normal motor functions Mental Status Exam: alert, oriented x 3, cooperative Skin Exam: normal color, warm, dry SpO2 Interpretation: normal (98%) SpO2: 98 - Course Nursing assessment & vital signs reviewed: Yes - Radiology Exams Right Ankle X-ray Interpretation: Discussed w/ radiologist (x-ray right ankle: No bony, articular, or soft tissue abnormalities.) Ordered Tests: Active Orders 24 hr Category Date Time Status KNEE (3 VIEWS) Stat Exams 09/02/18 16:22 Completed - Progress Progress: improved Progress Note: 09/02/18 16:34 52-year-old white male with history of developmental abnormalities of both feet arrives with complaint of pain in the right knee after falling at a local restaurant. He states he twisted his knee when falling is having pain in the anterior right knee. On physical examination he has some mild tenderness with palpation anterior right knee pain with movement anterior right knee. I do not see any swelling. Right knee is stable to anterior drawer posterior drawer MCL stress, LCL stress. X-ray of the right knee is negative for bony, articular, or soft tissue abnormalities. I've offered patient Tylenol or Advil for pain he really doesn't want any. 09/02/18 16:48 Patient now states he will take Advil for pain. Will also place right knee immobilizer. - Departure Time of Disposition: 16:48 Departure Disposition: Home Clinical Impression: Strain of right knee Accidental fall Qualifiers: Encounter type: initial encounter Qualified Code(s): W19.XXXA - Unspecified fall, initial encounter Condition: Fair Critical Care Time: No Referrals: JOHN ROMO [Primary Care Provider] - Instructions: Knee Pain (DC)
--- NOTE | 2018-09-02 16:32 | XRAY ---
Indication: Pain following fall. Comparison: January 14, 2017. 3 views of the right knee obtained. No bony, articular, or soft tissue abnormalities.
[2018-09-02 16:34] VITALS: BP 104/74; PULSE 76
[2018-09-02] MEDS ORDERED: MOTRIN 600 MG PO ONE (16:50)
== END 2018-09-02 17:10 | disposition home or self-care (01) ==
LOC: ED 15:33
DX: S86.911A Strain of unspecified muscle(s) and tendon(s) at lower leg level, right leg, initial encounter (principal); M25.561 Pain in right knee; W01.198A Fall on same level from slipping, tripping and stumbling with subsequent striking against other object, initial encounter; X50.1XXA Overexertion from prolonged static or awkward postures, initial encounter; Y92.29 Other specified public building as the place of occurrence of the external cause; E11.9 Type 2 diabetes mellitus without complications; K21.9 Gastro-esophageal reflux disease without esophagitis; F41.8 Other specified anxiety disorders; F60.3 Borderline personality disorder; I34.0 Nonrheumatic mitral (valve) insufficiency; F91.9 Conduct disorder, unspecified; H54.40 Blindness, one eye, unspecified eye; Z79.899 Other long term (current) drug therapy
CPT/HCPCS: 73562; 99283; L1830

== ENCOUNTER 2018-11-08 15:55 | Emergency (ER) | payer MEDICARE ==
[2018-11-08] MEDS ORDERED: BABY ASPIRIN 81 MG CHEW PO ONE (16:34)
[2018-11-08] MEDS ORDERED: BABY ASPIRIN 81 MG CHEW ONE (16:41)
[2018-11-08 16:58] LABS: BASOPHIL % 0.4 % (0.0-0.4); Basophil (Absolute #) 0.03 (0-0.4); Eosinophil % 3.3 % (0.00-5.0); Eosinophil (Absolute #) 0.25 (0-0.5); Granulocyte Absolute (ANC) 3.91 (1.4-6.9); Granulocytes % 51.6 % (36.0-66.0); Hematocrit 41.5 % (42-50); Hemoglobin 14.1 gm/dl (12.5-18.0); Lymphocyte (Absolute #) 2.76 (1.0-4.6); Lymphocytes % 36.4 % (24.0-44.0); Mean Cell Volume 93.9 fl (78-100); Mean Corpuscular Hemoglobin 31.9 pg (26-32); Mean Platelet Volume 10.7 fl (6-9.5); Monocyte (Absolute #) 0.63 (0.0-1.3); Monocytes % 8.3 % (0.0-12.0); Platelet Count 343 K/mm3 (150-450); Red Blood Count 4.42 M/mm3 (4.1-5.6); Red Cell Distribution Width 12.3 % (11.5-14.0); White Blood Count 7.6 K/mm3 (4.0-10.5)
[2018-11-08 17:05] LABS: INR 1.03 (0.8-3.0)
[2018-11-08 17:07] LABS: D-DIMER QUANTITATION < 215 ng/mL (215-500)
[2018-11-08 17:18] LABS: ALBUMIN 4.7 g/dL (3.5-5.0); ALKALINE PHOSPHATASE 79 U/L (38-126); ANION GAP 13.7 MEQ/L (5-15); BLOOD UREA NITROGEN 14 mg/dL (9-20); CHLORIDE 104 mmol/L (98-107); Calcium 9.6 mg/dL (8.4-10.2); Carbon Dioxide 25 mmol/L (22-30); Creatinine 1 1.24 mg/dL (0.66-1.25); Glucose 126 mg/dL (74-106); NT PRO BNP < 11.1 pg/mL (0-900); Potassium 4.2 mmol/L (3.5-5.1); SGOT/AST 27 U/L (17-59); SGPT/ALT 31 U/L (0-50); SODIUM 138 mmol/L (137-145); Total Protein 9.1 g/dL (6.3-8.2)
--- NOTE | 2018-11-08 17:21 | XRAY ---
Indication: Chest pain. Comparison: May 28, 2016. Portable chest demonstrates minimal left base fibrosis/scarring and stable right base calcified granuloma. No focal infiltrate, consolidation, or large effusion. Heart and mediastinal structures within normal limits for AP portable technique. Bony thorax intact. Impression: Nonacute chest with chronic features.
[2018-11-08] MEDS ORDERED: GI COCKTAIL 45 ML (Maalox/Lidocaine) PO ONE (17:38)
[2018-11-08] MEDS ORDERED: MORPHINE SULFATE 2 MG INJ IV ONE (17:39)
[2018-11-08] MEDS ORDERED: MORPHINE SULFATE 2 MG INJ ONE (17:46)
[2018-11-08] MEDS ORDERED: XYLOCAINE HCl Viscous ONE (17:47)
[2018-11-08] MEDS ORDERED: MAALOX ES 30 ML UNIT DOSE ONE (17:47)
--- NOTE | 2018-11-08 18:06 | ERPHSYRPT ---
<MATT DSOUZA - Last Filed: 11/08/18 19:15> - History of Present Illness Time Seen by Provider: 11/08/18 16:10 Historian: patient, family Patient Subjective Stated Complaint: chest pain to the medial epigastric region Triage Nursing Assessment: Pt c/o of chest pain after eating tacos, pain is in the medial epigastric region, rates pain 10/10, vitals wnl, pulses normal, bowel sounds heard in all 4 quadrants Physician History: 53 y/o white male presents with sharp, nonradiating substernal cp intermittently since last pm after eating tacos. pt has a h/o hiatal hernia and is taking omeprazole. he has no known cardiac dz. pt also has a h/o barretts esophagus Timing/Duration: day(s) (1), worse Quality: burning, sharpness, stabbing Location: substernal Chest Pain Radiation: no radiation Severity of Pain-Max: moderate Severity of Pain-Current: moderate Modifying Factors: Improves With: eating Associated Symptoms: heartburn, No nausea, No vomiting, No shortness of breath Prior Chest Pain/Cardiac Workup: no prior chest pain Nitro Today/Relief: no nitro taken today Aspirin Treatment Today: no aspirin today Allergies/Adverse Reactions: latex [Latex] Allergy (Verified 11/08/18 16:07) BLEACH Allergy (Mild, Uncoded 10/28/17 23:31) Home Medications: Haloperidol 0.5 mg PO DAILY 05/28/16 [History] Haloperidol 1 mg [Haldol 1 mg] 3 mg PO HS 05/28/16 [History] Levothyroxine Sodium 100 Mcg [Synthroid 100 Mcg] 50 mcg PO DAILY 05/28/16 [ History] Omeprazole [Prilosec] 40 mg PO BID 05/28/16 [History] Rosuvastatin Calcium [Crestor] 10 mg PO HS 05/28/16 [History] Docusate Sodium 100 mg [Colace 100 MG] 100 mg PO BID 06/27/17 [History] Multivitamin W-Minerals/Lutein [Cerovite Silver Tablet] 1 each PO DAILY [History] Lamotrigine [Lamictal] 150 mg PO HS 09/02/18 [History] Fluoxetine HCl 20 mg PO DAILY 11/08/18 [History] Lisinopril 5 mg PO DAILY 11/08/18 [History] Hx Tetanus, Diphtheria Vaccination/Date Given: No Hx Influenza Vaccination/Date Given: No Hx Pneumococcal Vaccination/Date Given: No - Review of Systems Constitutional: No Symptoms Eyes: No Symptoms Ears, Nose, & Throat: No Symptoms Respiratory: No Symptoms Cardiac: Chest Pain Abdominal/Gastrointestinal: No Symptoms Genitourinary Symptoms: No Symptoms Musculoskeletal: No Symptoms Skin: No Symptoms Neurological: No Symptoms Psychological: No Symptoms Endocrine: No Symptoms Hematologic/Lymphatic: No Symptoms Immunological/Allergic: No Symptoms All Other Systems: Reviewed and Negative - Past Medical History Pertinent Past Medical History: Yes Neurological History: Other ENT History: Other Cardiac History: No Pertinent History Respiratory History: No Pertinent History Endocrine Medical History: Diabetes Type II Musculoskeletal History: Other GI Medical History: Esophageal Disorder, GERD History: No Pertinent History Psycho-Social History: Anxiety, Depression Male Reproductive Disorders: No Pertinent History Other Medical History: 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 EXPLOSIVE DISORDER. Mild Mental Retardation. Behavior Disorder. 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 AT 2 - Social History Smoking Status: Never smoker Exposure to second hand smoke: No Alcohol Use: None Drug Use: none Patient Lives Alone: Yes Significant Family History: no pertinent family hx - Nursing Vital Signs Nursing Vital Signs: Initial Vital Signs Temperature 97.0 F 11/08/18 15:57 Pulse Rate 83 11/08/18 15:57 Blood Pressure 115/84 11/08/18 15:57 O2 Sat by Pulse Oximetry 97 11/08/18 15:57 Pain Scale Pain Intensity 10 - Physical Exam General Appearance: mild distress, alert, anxiety Eye Exam: PERRL/EOMI Ears, Nose, Throat Exam: normal ENT inspection, moist mucous membranes Neck Exam: normal inspection, non-tender, supple, full range of motion Respiratory Exam: normal breath sounds, chest tenderness, lungs clear, airway intact, No respiratory distress Cardiovascular Exam: regular rate/rhythm, normal heart sounds, normal peripheral pulses Gastrointestinal/Abdomen Exam: soft, normal bowel sounds, No tenderness Rectal Exam: not done Back Exam: normal inspection, normal range of motion, No CVA tenderness, No vertebral tenderness Extremity Exam: normal inspection, normal range of motion, pelvis stable Neurologic Exam: alert, oriented x 3, cooperative, process machine operator II-XII nml as tested Skin Exam: normal color, warm, dry Lymphatic Exam: No adenopathy SpO2 Interpretation: normal SpO2: 96 O2 Delivery: Room Air - Course Nursing assessment & vital signs reviewed: Yes EKG Interpreted by Me: RATE (83), Sinus Rhythm, NORMAL AXIS, Other (comparison to normal ekg dated 05/28/16) Ordered Tests: Active Orders 24 hr Category Date Time Status Occupational Therapist Assistant STAT Care 11/08/18 16:18 Active EKG-ER Only STAT Care 11/08/18 16:18 Active IV Insertion STAT Care 11/08/18 16:18 Active CHEST 1 VIEW (PORTABLE) Stat Exams 11/08/18 16:34 Completed CHEST WITH CONTRAST [CT] Stat Exams 11/08/18 20:34 Taken CBC W DIFF Stat Lab 11/08/18 16:40 Completed CMP Stat Lab 11/08/18 16:40 Completed D-DIMER QUANTITATION Stat Lab 11/08/18 16:40 Completed NT PRO BNP Stat Lab 11/08/18 16:40 Completed PROTIME WITH INR Stat Lab 11/08/18 16:40 Completed TROPONIN Q3H Lab 11/08/18 16:40 Completed TROPONIN Q3H Lab 11/08/18 19:35 Completed TROPONIN Q3H Lab 11/08/18 22:45 Ordered TROPONIN Q3H Lab 11/09/18 01:45 Ordered TROPONIN Q3H Lab 11/09/18 04:45 Ordered Medication Summary Generic Name Dose Route Start Last Admin Trade Name Freq PRN Reason Stop Dose Admin Famotidine 40 mg 11/09/18 18:09 11/08/18 18:19 Pepcid 20 Mg Vial IV 11/09/18 18:10 40 mg STAT ONE Administration Discontinued Medications Generic Name Dose Route Start Last Admin Trade Name Freq PRN Reason Stop Dose Admin Al Hydrox/Mg Hydrox/Simethicone Confirm 11/08/18 17:47 Maalox Es 30 Ml Unit Dose Administered 11/08/18 17:48 Dose 30 ml .ROUTE .STK-MED ONE Aspirin 324 mg 11/08/18 16:34 11/08/18 16:42 Baby Aspirin 81 Mg Chew PO 11/08/18 16:35 324 mg STAT ONE Administration Aspirin Confirm 11/08/18 16:41 Baby Aspirin 81 Mg Chew Administered 11/08/18 16:42 Dose 324 mg .ROUTE .STK-MED ONE Famotidine Confirm 11/08/18 18:18 Pepcid 20 Mg Vial Administered 11/08/18 18:19 Dose 40 mg IV .STK-MED ONE Lidocaine HCl Confirm 11/08/18 17:47 Xylocaine Hcl Viscous * Administered 11/08/18 17:48 Dose 15 ml .ROUTE .STK-MED ONE Magnesium Hydroxide 45 ml 11/08/18 17:38 11/08/18 17:51 Gi Cocktail 45 Ml (Maalox/Lidocaine) PO 11/08/18 17:39 45 ml STAT ONE Administration Morphine Sulfate 2 mg 11/08/18 17:39 11/08/18 17:51 Morphine Sulfate 2 Mg Inj IV 11/08/18 17:40 2 mg STAT ONE Administration Morphine Sulfate Confirm 11/08/18 17:46 Morphine Sulfate 2 Mg Inj Administered 11/08/18 17:47 Dose 2 mg .ROUTE .STK-MED ONE Lab/Rad Data: Laboratory Result Diagrams 11/08/18 16:40 11/08/18 16:40 Laboratory Results 11/08/18 11/08/18 11/08/18 Range/Units 19:35 16:40 16:40 WBC (4.0-10.5) K/mm3 RBC (4.1-5.6) M/mm3 Hgb (12.5-18.0) gm/dl Hct (42-50) % MCV (78-100) fl MCH (26-32) pg MCHC (32-36) g/dl RDW (11.5-14.0) % Plt Count (150-450) K/mm3 MPV (6-9.5) fl Gran % (36.0-66.0) % Eos # (Auto) (0-0.5) Absolute Lymphs (auto) (1.0-4.6) Absolute Monos (auto) (0.0-1.3) Lymphocytes % (24.0-44.0) % Monocytes % (0.0-12.0) % Eosinophils % (0.00-5.0) % Basophils % (0.0-0.4) % Absolute Granulocytes (1.4-6.9) Basophils # (0-0.4) PT 12.0 (8.83-12.87) SECONDS INR 1.03 (0.8-3.0) D-Dimer < 215 L (215-500) ng/mL Sodium (137-145) mmol/L Potassium (3.5-5.1) mmol/L Chloride (98-107) mmol/L Carbon Dioxide (22-30) mmol/L Anion Gap (5-15) MEQ/L BUN (9-20) mg/dL Creatinine (0.66-1.25) mg/dL Estimated GFR ML/MIN Glucose (74-106) mg/dL Calcium (8.4-10.2) mg/dL Total Bilirubin (0.2-1.3) mg/dL AST (17-59) U/L ALT (0-50) U/L Alkaline Phosphatase (38-126) U/L Troponin I < 0.012 < 0.012 (0.000-0.034) ng/mL NT-Pro-B Natriuret Pep (0-900) pg/mL Serum Total Protein (6.3-8.2) g/dL Albumin (3.5-5.0) g/dL 11/08/18 11/08/18 Range/Units 16:40 16:40 WBC 7.6 (4.0-10.5) K/mm3 RBC 4.42 (4.1-5.6) M/mm3 Hgb 14.1 (12.5-18.0) gm/dl Hct 41.5 L (42-50) % MCV 93.9 (78-100) fl MCH 31.9 (26-32) pg MCHC 34.0 (32-36) g/dl RDW 12.3 (11.5-14.0) % Plt Count 343 (150-450) K/mm3 MPV 10.7 H (6-9.5) fl Gran % 51.6 (36.0-66.0) % Eos # (Auto) 0.25 (0-0.5) Absolute Lymphs (auto) 2.76 (1.0-4.6) Absolute Monos (auto) 0.63 (0.0-1.3) Lymphocytes % 36.4 (24.0-44.0) % Monocytes % 8.3 (0.0-12.0) % Eosinophils % 3.3 (0.00-5.0) % Basophils % 0.4 (0.0-0.4) % Absolute Granulocytes 3.91 (1.4-6.9) Basophils # 0.03 (0-0.4) PT (8.83-12.87) SECONDS INR (0.8-3.0) D-Dimer (215-500) ng/mL Sodium 138 (137-145) mmol/L Potassium 4.2 (3.5-5.1) mmol/L Chloride 104 (98-107) mmol/L Carbon Dioxide 25 (22-30) mmol/L Anion Gap 13.7 (5-15) MEQ/L BUN 14 (9-20) mg/dL Creatinine 1.24 (0.66-1.25) mg/dL Estimated GFR > 60.0 ML/MIN Glucose 126 H (74-106) mg/dL Calcium 9.6 (8.4-10.2) mg/dL Total Bilirubin 0.60 (0.2-1.3) mg/dL AST 27 (17-59) U/L ALT 31 (0-50) U/L Alkaline Phosphatase 79 (38-126) U/L Troponin I (0.000-0.034) ng/mL NT-Pro-B Natriuret Pep < 11.1 (0-900) pg/mL Serum Total Protein 9.1 H (6.3-8.2) g/dL Albumin 4.7 (3.5-5.0) g/dL - Progress Air Movement: good Progress Note: 11/08/18 19:15 transfer of care to dr. garcia. i reviewed pt lab, ekg, cxr results with him. dr. garcia will determine final disposition depending on troponin and pt clinical status. Blood Culture(s) Obtained: No Antibiotics given: No Counseled pt/family regarding: lab results, diagnosis, rad results - Departure Clinical Impression: Non-cardiac chest pain, History of esophageal reflux, History of Cooper's esophagus Condition: Fair Referrals: JOHN ROMO [Primary Care Provider] - Additional Instructions: Return home. Tylenol every 4 hours as needed for pain. Continue omeprazole as prescribed. Follow-up with Dr. Romo as scheduled on Thursday, sooner if problems. Return for acute distress or for severe symptoms. <[email or web address] - Last Filed: 11/08/18 22:31> - CT Exams Chest CT Interpretation: Discussed w/radiologist (CT chest with contrast: No comparisons, bilateral dependent atelectasis, scattered calcified granulomas and fatty liver. Remaining CT chest with contrast negative.) - Progress Progress: improved Air Movement: fair Progress Note: 11/08/18 20:35 This is a 53-year-old white male with history of diabetes type 2, esophageal disorder, GERD, anxiety, depression, inverted defect bilateral feet, explosive disorder, mild mentally retarded, behavior disorder, blind in his left eye Patient arrives with complaint of pain in his anterior sternal region described as sharp sometimes throbbing symptoms since yesterday no real shortness of breath patient had time she told the nurses that he was having a burning pain as well. Patient was initially seen by Dr. Dsouza. Patient with the stable vital signs patient's EKG sinus rhythm [address] or T wave changes chest x-ray no acute disease process noted CBC White blood cell 7.6 hemoglobin 14.1 hematocrit 41.5 d-dimer less than 215 chemistry 138 potassium 4.2 chloride 104 bicarbonate 25 BUN 14 creatinine 1.24 troponin 2 less than 0.012 BNP less than 11.1 Patient was repeat troponin within normal limits patient continues to complain of pain he has received IV morphine 2 mg she has received aspirin 324 mg he has received GI cocktail he's received IV Pepcid. Will go ahead and obtain CTA of the patient's chest . Patient appears to be stable despite his complaints of this time. 11/08/18 21:59 CT of the chest shows some dependent atelectasis bilaterally, scattered calcified granulomas and fatty liver. Remaining CT chest with contrast is negative. Patient does not appear to be in acute distress but when I asked him how he is doing he states "I feel lousy. Will go ahead and discussed patient's case with Dr. Ashby who is hospice liaison for Dr. romo. Apparently the patient does have a history of Cooper's he is scheduled to see Dr. Romo on Wednesday 2 days from now. He is on omeprazole he has received GI cocktail Pepcid morphine in the emergency room. 11/08/18 22:29 I've discussed patient's case with Dr. Ashby will discharge patient. Patient is to continue omeprazole as prescribed. He can take Tylenol every 4 hours as needed for pain. Patient has an appointment with Dr. romo the patient's mother also states that she will consider contacting Dr. Barrera. Patient is stable at this time does not appear to be in acute distress. - Departure Departure Disposition: Home Critical Care Time: No
[2018-11-08] MEDS ORDERED: Pepcid 20 MG VIAL IV ONE (18:18)
[2018-11-08 20:06] VITALS: O2SAT 95
[2018-11-08 22:57] VITALS: BP 106/81; PULSE 77
--- NOTE | 2018-11-09 08:46 | XRAY ---
Indication: Epigastric/chest pain. History of hiatal hernia. Multiple contiguous axial images obtained through the chest using 80 cc Isovue 300 contrast. Comparison: None Mild bilateral dependent atelectasis, minimal bibasilar fibrosis/scarring, and right middle lobe calcified granulomas. No suspicious pulmonary mass, infiltrate, or effusion. Heart is not enlarged. Aorta is normal in course and caliber. Subcarinal calcified nodes. No pathologic mediastinal/hilar lymphadenopathy. Bony thorax intact with minimal degenerative changes throughout the spine. Limited upper abdomen demonstrates fatty liver, calcified splenic granulomas, and cholecystectomy clips. Impression: 1. Scattered atelectasis, fibrosis/scarring, and evidence for old granulomatous disease. 2. Fatty liver. 3. Remaining CT chest with contrast exam is negative. CT DI 14.39
[2018-11-09] MEDS ORDERED: Pepcid 20 MG VIAL IV ONE (18:09)
== END 2018-11-08 23:04 | disposition home or self-care (01) ==
LOC: ED 15:55
DX: R07.89 Other chest pain (principal); K21.9 Gastro-esophageal reflux disease without esophagitis; K22.70 Barrett's esophagus without dysplasia; F41.8 Other specified anxiety disorders; F70 Mild intellectual disabilities; F91.9 Conduct disorder, unspecified; Z79.899 Other long term (current) drug therapy
CPT/HCPCS: 36000; 36415; 71045; 71260; 80053; 83880; 84484; 85025; 85379; 85610; 93005; 93041; 96374; 96375; 99285; J2270; A9270-GY

== ENCOUNTER 2020-04-19 23:25 | Observation (INO) | payer MEDICARE ==
--- NOTE | 2020-04-19 23:48 | ERPHSYRPT ---
- History of Present Illness Time Seen by Provider: 04/19/20 23:30 Source: patient Exam Limitations: no limitations Patient Subjective Stated Complaint: "I just feel funny." Triage Nursing Assessment: . Physician History: Patient is a 54-year-old male with a history of MR presents to our ED with nonspecific complaints of not feeling well. Patient states "I feel funny". Patient states he observed his blood pressure today at home on his home unit. Patient states blood pressure was elevated. Patient continues to complain of feeling dizzy. Patient states he feels he is going to pass out. During our triage patient was observed to have an episode that resembled an absence seizure. Patient stared off into space and became temporarily unresponsive. No collapse. Patient denies headache. No nausea or vomiting. No chest pain. No fever. Patient is blind in his left eye. Patient denies active pain. HPI joe ewhat limited due to MR. Symptoms are mild to moderate in intensity. No specific worsening or improving factors. However patient voices no other complaints or concerns at this time. Timing/Duration: today Severity: mild Modifying Factors: Improves With: nothing Associated Symptoms: No nausea, No vomiting, No abdominal pain, No shortness of breath, No heartburn, No diaphoresis, No cough, No chills, No chest pain, No fever, No headaches, No loss of appetite, No malaise, No syncope, No seizure Allergies/Adverse Reactions: latex [Latex] Allergy (Verified 04/19/20 23:29) BLEACH Allergy (Mild, Uncoded 04/19/20 23:29) Home Medications: Haloperidol 0.5 mg PO DAILY 05/28/16 [History] Haloperidol 1 mg [Haldol 1 mg] 3 mg PO HS 05/28/16 [History] Levothyroxine Sodium 100 Mcg [Synthroid 100 Mcg] 50 mcg PO DAILY 05/28/16 [History] Omeprazole [Prilosec] 40 mg PO BID 05/28/16 [History] Rosuvastatin Calcium [Crestor] 10 mg PO HS 05/28/16 [History] Docusate Sodium 100 mg [Colace 100 MG] 100 mg PO BID 06/27/17 [History] Multivitamin W-Minerals/Lutein [Cerovite Silver Tablet] 1 each PO DAILY 06/27/17 [History] Lamotrigine [Lamictal] 150 mg PO HS 09/02/18 [History] Fluoxetine HCl 20 mg PO DAILY 11/08/18 [History] lisinopriL [Lisinopril] 5 mg PO DAILY 11/08/18 [History] Hx Tetanus, Diphtheria Vaccination/Date Given: Yes Hx Influenza Vaccination/Date Given: Yes Hx Pneumococcal Vaccination/Date Given: No Travel Risk - International Travel Have you traveled outside of the country in past 3 weeks: No - Coronavirus Screening Are you exhibiting any of the following symptoms?: No Close contact with a COVID-19 positive Pt in past 14-21 Days: No - Review of Systems Constitutional: No Symptoms, No Fever, No Chills Eyes: No Symptoms Ears, Nose, & Throat: No Symptoms Respiratory: No Symptoms, No Cough, No Dyspnea Cardiac: No Symptoms, No Chest Pain, No Edema, No Syncope Abdominal/Gastrointestinal: No Symptoms, No Abdominal Pain, No Nausea, No Vomiti ng, No Diarrhea Genitourinary Symptoms: No Symptoms, No Dysuria Musculoskeletal: No Symptoms, No Back Pain, No Neck Pain Skin: No Symptoms, No Rash Neurological: No Symptoms, No Dizziness, No Focal Weakness, No Sensory Changes Psychological: No Symptoms Endocrine: No Symptoms Hematologic/Lymphatic: No Symptoms Immunological/Allergic: No Symptoms All Other Systems: Reviewed and Negative - Past Medical History Pertinent Past Medical History: Yes Neurological History: Other ENT History: Other Cardiac History: No Pertinent History Respiratory History: No Pertinent History Endocrine Medical History: Diabetes Type II Musculoskeletal History: Other GI Medical History: Esophageal Disorder, GERD History: No Pertinent History Psycho-Social History: Anxiety, Depression Male Reproductive Disorders: No Pertinent History Other Medical History: 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 EXPLOSIVE DISORDER. Mild Mental Retardation. Behavior Disorder. 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 AT 2 - Social History Smoking Status: Never smoker Exposure to second hand smoke: No Alcohol Use: None Drug Use: none Patient Lives Alone: Yes Significant Family History: no pertinent family hx - Nursing Vital Signs Nursing Vital Signs: Initial Vital Signs Temperature 97.6 F 04/19/20 23:27 Pulse Rate 74 04/19/20 23:27 Respiratory Rate 16 04/19/20 23:27 Blood Pressure 141/89 04/19/20 23:27 O2 Sat by Pulse Oximetry 98 04/19/20 23:27 - Physical Exam General Appearance: no apparent distress, alert Eye Exam: PERRL/EOMI, eyes nml inspection, other (Left eye blindness) Ears, Nose, Throat Exam: normal ENT inspection, TMs normal, pharynx normal, moist mucous membranes Neck Exam: normal inspection, non-tender, supple, full range of motion Respiratory Exam: normal breath sounds, lungs clear, No respiratory distress Cardiovascular Exam: regular rate/rhythm, normal heart sounds, normal peripheral pulses Gastrointestinal/Abdomen Exam: soft, normal bowel sounds, No tenderness, No mass Back Exam: normal inspection, normal range of motion, No CVA tenderness, No vertebral tenderness Extremity Exam: normal inspection, normal range of motion, pelvis stable Neurologic Exam: alert, oriented x 3, cooperative, normal mood/affect, nml cerebellar function, nml station & gait, sensation nml, No motor deficits, No sensory deficit, No disoriented, No confusion, No facial droop, No slurred speech, No aphasia, No abnormal gait, No abnormal network systems operator II-XII Skin Exam: normal color, warm, dry, No rash Lymphatic Exam: No adenopathy SpO2 Interpretation: normal SpO2: 99 O2 Delivery: Room Air - Course Nursing assessment & vital signs reviewed: Yes EKG Interpreted by Me: RATE (78), Sinus Rhythm, NORMAL AXIS, NORMAL INTERVALS - Radiology Exams Chest X-ray Interpretation: Interpreted by me (Cline, normal cardiac silhouette, no pneumothorax, normal bony thorax.) - CT Exams Head CT Interpretation: Negative (CT head negative for acute intracranial pathology.) Ordered Tests: Active Orders 24 hr Category Date Time Status Leather Leveler STAT Care 04/19/20 23:29 Active EKG-ER Only STAT Care 04/19/20 23:28 Active IV Insertion STAT Care 04/19/20 23:28 Active Pulse Oximetry (ED) STAT Care 04/19/20 23:28 Active CHEST 1 VIEW (PORTABLE) Stat Exams 04/19/20 23:28 Taken HEAD WITHOUT CONTRAST [CT] Stat Exams 04/20/20 00:42 Taken ACETAMINOPHEN Stat Lab 04/20/20 00:00 Completed CBC W DIFF Stat Lab 04/19/20 23:45 Completed CMP Stat Lab 04/19/20 23:45 Completed ETHYL ALCOHOL Stat Lab 04/20/20 00:00 Completed MAGNESIUM Stat Lab 04/19/20 23:45 Completed SALICYLATE Stat Lab 04/20/20 00:00 Completed TROPONIN Q3H Lab 04/19/20 23:45 Completed TROPONIN Q3H Lab 04/20/20 02:30 Ordered TROPONIN Q3H Lab 04/20/20 05:30 Ordered TROPONIN Q3H Lab 04/20/20 08:30 Ordered TROPONIN Q3H Lab 04/20/20 11:30 Ordered UA W/RFX UR CULTURE Stat Lab 04/19/20 23:50 Completed Urine Triage Profile Stat Lab 04/20/20 00:00 Completed Transfer Order Routine Transfer 04/20/20 Ordered Lab/Rad Data: Laboratory Result Diagrams 04/19/20 23:45 04/19/20 23:45 Laboratory Results 04/20/20 04/20/20 04/19/20 Range/Units 00:00 00:00 23:50 WBC (4.0-10.5) K/mm3 RBC (4.1-5.6) M/mm3 Hgb (12.5-18.0) gm/dl Hct (42-50) % MCV (78-100) fl MCH (26-32) pg MCHC (32-36) g/dl RDW (11.5-14.0) % Plt Count (150-450) K/mm3 MPV (7.5-11.0) fl Gran % (36.0-66.0) % Eos # (Auto) (0-0.5) Absolute Lymphs (auto) (1.0-4.6) Absolute Monos (auto) (0.0-1.3) Lymphocytes % (24.0-44.0) % Monocytes % (0.0-12.0) % Eosinophils % (0.00-5.0) % Basophils % (0.0-0.4) % Absolute Granulocytes (1.4-6.9) Basophils # (0-0.4) Sodium (137-145) mmol/L Potassium (3.5-5.1) mmol/L Chloride (98-107) mmol/L Carbon Dioxide (22-30) mmol/L Anion Gap (5-15) MEQ/L BUN (9-20) mg/dL Creatinine (0.66-1.25) mg/dL Estimated GFR ML/MIN Glucose (74-106) mg/dL Calcium (8.4-10.2) mg/dL Magnesium (1.6-2.3) mg/dL Total Bilirubin (0.2-1.3) mg/dL AST (17-59) U/L ALT (0-50) U/L Alkaline Phosphatase (38-126) U/L Troponin I (0.000-0.034) ng/mL Serum Total Protein (6.3-8.2) g/dL Albumin (3.5-5.0) g/dL Urine Color COLORLESS (YELLOW) Urine Appearance CLEAR (CLEAR) Urine pH 6.0 (5-6) Ur Specific Placida 1.002 (1.005-1.025) Urine Protein NEGATIVE (Negative) Urine Ketones NEGATIVE (NEGATIVE) Urine Blood MODERATE (0-5) Vince/ul Urine Nitrite NEGATIVE (NEGATIVE) Urine Bilirubin NEGATIVE (NEGATIVE) Urine Urobilinogen NEGATIVE (0-1) mg/dL Ur Leukocyte Esterase NEGATIVE (NEGATIVE) Urine WBC (Auto) NONE (0-5) /HPF Urine RBC (Auto) NONE (0-2) /HPF U Hyaline Cast (Auto) 0-2 (0-2) /LPF U Epithel Cells (Auto) NONE (FEW) /HPF Urine Bacteria (Auto) NONE (NEGATIVE) /HPF Urine Culture Reflexed NO (NO) Urine Glucose NEGATIVE (NEGATIVE) mg/dL Salicylates < 1.0 L (2-20) mg/dL Urine Opiates Level NEGATIVE (NEGATIVE) Ur Methadone NEGATIVE (NEGATIVE) Acetaminophen < 10 L (10-30) ug/ml Urine Barbiturates NEGATIVE (NEGATIVE) Ur Phencyclidine (PCP) NEGATIVE (NEGATIVE) Urine Amphetamine NEGATIVE (NEGATIVE) U Benzodiazepine Level NEGATIVE (NEGATIVE) Urine Cocaine NEGATIVE (NEGATIVE) Urine Marijuana (THC) NEGATIVE (NEGATIVE) Ethyl Alcohol < 10 (0-10) mg/dL 04/19/20 04/19/20 04/19/20 Range/Units 23:45 23:45 23:45 WBC 8.4 (4.0-10.5) K/mm3 RBC 4.31 (4.1-5.6) M/mm3 Hgb 13.3 (12.5-18.0) gm/dl Hct 40.7 L (42-50) % MCV 94.4 (78-100) fl MCH 30.9 (26-32) pg MCHC 32.7 (32-36) g/dl RDW 12.6 (11.5-14.0) % Plt Count 335 (150-450) K/mm3 MPV 9.7 (7.5-11.0) fl Gran % 46.1 (36.0-66.0) % Eos # (Auto) 0.34 (0-0.5) Absolute Lymphs (auto) 3.29 (1.0-4.6) Absolute Monos (auto) 0.89 (0.0-1.3) Lymphocytes % 39.1 (24.0-44.0) % Monocytes % 10.6 (0.0-12.0) % Eosinophils % 4.0 (0.00-5.0) % Basophils % 0.2 (0.0-0.4) % Absolute Granulocytes 3.88 (1.4-6.9) Basophils # 0.02 (0-0.4) Sodium 138 (137-145) mmol/L Potassium 3.5 (3.5-5.1) mmol/L Chloride 100 (98-107) mmol/L Carbon Dioxide 27 (22-30) mmol/L Anion Gap 13.8 (5-15) MEQ/L BUN 11 (9-20) mg/dL Creatinine 1.22 (0.66-1.25) mg/dL Estimated GFR > 60.0 ML/MIN Glucose 111 H (74-106) mg/dL Calcium 9.5 (8.4-10.2) mg/dL Magnesium 1.9 (1.6-2.3) mg/dL Total Bilirubin 0.40 (0.2-1.3) mg/dL AST 21 (17-59) U/L ALT 18 (0-50) U/L Alkaline Phosphatase 64 (38-126) U/L Troponin I < 0.012 (0.000-0.034) ng/mL Serum Total Protein 9.7 H (6.3-8.2) g/dL Albumin 5.1 H (3.5-5.0) g/dL Urine Color (YELLOW) Urine Appearance (CLEAR) Urine pH (5-6) Ur Specific Placida (1.005-1.025) Urine Protein (Negative) Urine Ketones (NEGATIVE) Urine Blood (0-5) Vince/ul Urine Nitrite (NEGATIVE) Urine Bilirubin (NEGATIVE) Urine Urobilinogen (0-1) mg/dL Ur Leukocyte Esterase (NEGATIVE) Urine WBC (Auto) (0-5) /HPF Urine RBC (Auto) (0-2) /HPF U Hyaline Cast (Auto) (0-2) /LPF U Epithel Cells (Auto) (FEW) /HPF Urine Bacteria (Auto) (NEGATIVE) /HPF Urine Culture Reflexed (NO) Urine Glucose (NEGATIVE) mg/dL Salicylates (2-20) mg/dL Urine Opiates Level (NEGATIVE) Ur Methadone (NEGATIVE) Acetaminophen (10-30) ug/ml Urine Barbiturates (NEGATIVE) Ur Phencyclidine (PCP) (NEGATIVE) Urine Amphetamine (NEGATIVE) U Benzodiazepine Level (NEGATIVE) Urine Cocaine (NEGATIVE) Urine Marijuana (THC) (NEGATIVE) Ethyl Alcohol (0-10) mg/dL - Progress Progress: improved Progress Note: 04/20/20 02:25 Patient reassessed but repeat neuro exam within normal limits. However patient continues to complain of dizziness near syncopal sensations. In light of patient's ongoing symptomology will admit patient for observed seizure activity to near syncopal work-up. Plan of care discussed with patient. He agrees to admission to [facility] for further evaluation and treatment. Case discussed with Dr. Pastor who accepts admission to observation. Discussed with .: Vikram Will see patient in: hospital (observation) Counseled pt/family regarding: lab results, diagnosis, need for follow-up, rad results - Departure Departure Disposition: Observation Clinical Impression: Seizure, Dizziness, Near syncope Condition: Stable Critical Care Time: No Referrals: JOHN ROMO [Primary Care Provider] -
[2020-04-19 23:55] LABS: Absolute Neutrophil Ct (ANC) 3.88 (1.4-6.9); BASOPHIL % 0.2 % (0.0-0.4); Basophil (Absolute #) 0.02 (0-0.4); Eosinophil (Absolute #) 0.34 (0-0.5); Hematocrit 40.7 % (42-50); Hemoglobin 13.3 gm/dl (12.5-18.0); Lymphocyte (Absolute #) 3.29 (1.0-4.6); Lymphocytes % 39.1 % (24.0-44.0); Mean Cell Volume 94.4 fl (78-100); Mean Corpuscular Hemoglobin 30.9 pg (26-32); Mean Corpuscular Hgb Concent. 32.7 g/dl (32-36); Mean Platelet Volume 9.7 fl (7.5-11.0); Monocyte (Absolute #) 0.89 (0.0-1.3); Monocytes % 10.6 % (0.0-12.0); Neutrophil % 46.1 % (36.0-66.0); Platelet Count 335 K/mm3 (150-450); Red Blood Count 4.31 M/mm3 (4.1-5.6); Red Cell Distribution Width 12.6 % (11.5-14.0); White Blood Count 8.4 K/mm3 (4.0-10.5)
[2020-04-20 00:08] LABS: ALBUMIN 5.1 g/dL (3.5-5.0); ALKALINE PHOSPHATASE 64 U/L (38-126); ANION GAP 13.8 MEQ/L (5-15); BLOOD UREA NITROGEN 11 mg/dL (9-20); CHLORIDE 100 mmol/L (98-107); Calcium 9.5 mg/dL (8.4-10.2); Carbon Dioxide 27 mmol/L (22-30); Creatinine 1 1.22 mg/dL (0.66-1.25); EST GLOMERULAR FILTRATION RATE > 60.0 ML/MIN; Glucose 111 mg/dL (74-106); MAGNESIUM 1.9 mg/dL (1.6-2.3); Potassium 3.5 mmol/L (3.5-5.1); SGOT/AST 21 U/L (17-59); SGPT/ALT 18 U/L (0-50); SODIUM 138 mmol/L (137-145); Total Protein 9.7 g/dL (6.3-8.2)
[2020-04-20 00:30] LABS: Appearance CLEAR (CLEAR); Bilirubin NEGATIVE (NEGATIVE); Blood MODERATE Ery/ul (0-5); Glucose NEGATIVE (NEGATIVE); Hyaline Casts 0-2 /LPF (0-2); Ketones NEGATIVE (NEGATIVE); Leukocyte Esterase NEGATIVE (NEGATIVE); Nitrite NEGATIVE (NEGATIVE); Protein,Urine Dip NEGATIVE (Negative); Specific Gravity 1.002 (1.005-1.025); Urobilinogen NEGATIVE mg/dL (0-1)
[2020-04-20 01:10] LABS: ACETAMINOPHEN < 10 ug/ml (10-30); ETHYL ALCOHOL < 10 mg/dL (0-10); SALICYLATE < 1.0 mg/dL (2-20)
[2020-04-20 01:17] LABS: Amphetamine,Urine NEGATIVE (NEGATIVE); Barbiturate,Urine NEGATIVE (NEGATIVE); Benzodiazepine,Urine NEGATIVE (NEGATIVE); Cocaine,Urine NEGATIVE (NEGATIVE); Methadone,Urine NEGATIVE (NEGATIVE); Opiate,Urine NEGATIVE (NEGATIVE); PCP,Urine NEGATIVE (NEGATIVE); THC,Urine NEGATIVE (NEGATIVE)
[2020-04-20 06:08] LABS: ALBUMIN 4.8 g/dL (3.5-5.0); ALKALINE PHOSPHATASE 65 U/L (38-126); ANION GAP 13.7 MEQ/L (5-15); BLOOD UREA NITROGEN 10 mg/dL (9-20); CHLORIDE 103 mmol/L (98-107); Calcium 9.5 mg/dL (8.4-10.2); Carbon Dioxide 26 mmol/L (22-30); Creatinine 1 1.16 mg/dL (0.66-1.25); EST GLOMERULAR FILTRATION RATE > 60.0 ML/MIN; Glucose 154 mg/dL (74-106); Potassium 4.3 mmol/L (3.5-5.1); SGOT/AST 21 U/L (17-59); SGPT/ALT 18 U/L (0-50); SODIUM 138 mmol/L (137-145); Total Protein 9.5 g/dL (6.3-8.2)
[2020-04-20 06:20] LABS: Absolute Neutrophil Ct (ANC) 5.83 (1.4-6.9); BASOPHIL % 0.2 % (0.0-0.4); Basophil (Absolute #) 0.02 (0-0.4); Eosinophil % 2.3 % (0.00-5.0); Eosinophil (Absolute #) 0.21 (0-0.5); Hematocrit 40.8 % (42-50); Hemoglobin 13.4 gm/dl (12.5-18.0); Lymphocyte (Absolute #) 2.42 (1.0-4.6); Lymphocytes % 25.9 % (24.0-44.0); Mean Cell Volume 94.7 fl (78-100); Mean Corpuscular Hemoglobin 31.1 pg (26-32); Mean Corpuscular Hgb Concent. 32.8 g/dl (32-36); Mean Platelet Volume 10.5 fl (7.5-11.0); Monocyte (Absolute #) 0.85 (0.0-1.3); Monocytes % 9.1 % (0.0-12.0); Neutrophil % 62.5 % (36.0-66.0); Platelet Count 364 K/mm3 (150-450); Red Blood Count 4.31 M/mm3 (4.1-5.6); Red Cell Distribution Width 12.8 % (11.5-14.0); White Blood Count 9.3 K/mm3 (4.0-10.5)
[2020-04-20 06:57] VITALS: BP 155/85; PULSE 96
[2020-04-20 07:32] VITALS: O2SAT 94
--- NOTE | 2020-04-20 08:45 | PCM.SSS ---
History of Present Illness - Chief Complaint Chief Complaint: near syncope History of Present Illness: is a 54 year old male of Dr. Santos (has no new PCP yet) with MR, hypothyroid, DM II, hyperlipidemia, and L eye blindness who was admitted through ER c/o "I feel funny." He is a difficult historian; he tells me he was eating dinner with his girlfriend, tried to take his BP at home and the cuff wouldn't work, then states, "Can I call my girlfriend now?" Apparently he felt dizzy and c/o feeling presyncopal in ER. He had an episode of staring off in the ER and not responding to the staff, which was thought to possibly be an absence seizure, but after pt has been on the floor overnight, the staff thinks it's possible that this is an attention-seeking behavior. In ER, his labs were nl aside from some hyperglycemia (to 154 this morning). Troponins are neg x 3 (but he denies any pain). UA nl. Urine drug screen normal. CT head preliminary read nonacute. CXR official read pending (ER reported negative). Pt states he feels much better this morning. He would like to go home. His EEG can't be done today, so will send pt home and get an outpatient EEG next week. - Review of Systems Neurological: Dizziness All Other Systems: Reviewed and Negative (with some difficulty due to MR) Medications & Allergies Home Medications: Home Medication List Haloperidol 0.5 mg PO DAILY 05/28/16 [History Confirmed 11/08/18] Haloperidol 1 mg [Haldol 1 mg] 3 mg PO HS 05/28/16 [History Confirmed 11/08/18] Levothyroxine Sodium 100 Mcg [Synthroid 100 Mcg] 50 mcg PO DAILY 05/28/16 [History Confirmed 11/08/18] Omeprazole [Prilosec] 40 mg PO BID 05/28/16 [History Confirmed 04/20/20] Rosuvastatin Calcium [Crestor] 10 mg PO DAILY 05/28/16 [History Confirmed 04/20/20] Docusate Sodium 100 mg [Colace 100 MG] 100 mg PO BID 06/27/17 [History Confirmed 04/20/20] Multivitamin W-Minerals/Lutein [Cerovite Silver Tablet] 1 each PO DAILY 06/27/17 [History Confirmed 11/08/18] Lamotrigine [Lamictal] 150 mg PO HS 09/02/18 [History Confirmed 04/20/20] Fluoxetine HCl 20 mg PO DAILY 11/08/18 [History Confirmed 04/20/20] lisinopriL [Lisinopril] 5 mg PO DAILY 11/08/18 [History Confirmed 04/20/20] Metformin HCl 500 mg [Glucophage 500 MG] 1 tablet PO DAILY 04/20/20 [History Confirmed 04/20/20] Risperidone [Risperdal] 0.5 mg PO BID 04/20/20 [History Confirmed 04/20/20] Travorpost Ophth [Travatan 0.004% Opth Mary] 1 drop OP QHS 04/20/20 [History Confirmed 04/20/20] Allergies/Adverse Reactions: Allergies Allergy/AdvReac Type Severity Reaction Status Date / Time latex [Latex] Allergy Verified 04/19/20 23:29 BLEACH Allergy Mild Uncoded 04/19/20 23:29 - Past Medical History Past Medical History: Yes Neurological History: Other ENT History: Other Cardiac History: No Pertinent History Respiratory History: No Pertinent History Endocrine Medical History: Diabetes Type II Musculoskelatal History: Other GI Medical History: Esophageal Disorder, GERD History: No Pertinent History Pyscho-Social History: Anxiety, Depression, Other Male Reproductive Disorders: No Pertinent History Comment: 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 EXPLOSIVE DISORDER. Mild Mental Retardation. Behavior Disorder. 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 - Past Surgical History Past Surgical History: Yes Neuro Surgical History: No Pertinent History Cardiac History: No Pertinent History Respiratory Surgery: No Pertinent History GI Surgical History: Cholecystectomy, Hernia Repair Genitourinary Surgical Hx: No Pertinent History Musculskeletal Surgical Hx: No Pertinent History Male Surgical History: No Pertinent History Other Surgical History: TONSILECTOMY , FOOT SURGERY, AMP OF BIG TOE AT 2 - Social History Smoking Status: Never smoker Exposure to second hand smoke: No Alcohol: None Drug Use: none Significant Family History: no pertinent family hx - Physical Exam Vital Signs: Vital Signs - 24 hr Temp Pulse Resp BP Pulse Ox 04/20/20 07:30 94 L 04/20/20 06:59 93 L 04/20/20 06:56 97.5 F 96 H 20 155/85 93 L 04/20/20 04:15 95 04/20/20 02:59 97.5 F 87 18 119/75 98 04/20/20 02:27 99 04/20/20 01:00 85 14 115/85 97 04/20/20 00:27 80 16 142/86 98 04/19/20 23:28 99 04/19/20 23:27 97.6 F 74 16 141/89 98 General Appearance: no apparent distress, alert Neurologic Exam: cooperative, delivery tech II-XII nml as tested (aside from CN II, III- on the L), other (calm, cheerful, talkative. television reporter 5/5 bilat.) Eye Exam: eyes nml inspection Ears, Nose, Throat Exam: pharynx normal, moist mucous membranes Neck Exam: normal inspection Respiratory Exam: normal breath sounds, lungs clear, No crackles/rales, No rhonchi, No wheezing Cardiovascular Exam: regular rate/rhythm, normal heart sounds, No murmur Gastrointestinal/Abdomen Exam: soft, normal bowel sounds, No tenderness, No distention, No mass, No guarding, No rebound Back Exam: normal inspection Extremity Exam: normal inspection, No pedal edema, No swelling Skin Exam: normal color, warm, dry, No rash Results - Labs Lab/Micro Results: Lab Results-Last 24 Hours 04/19/20 04/19/20 04/19/20 Range/Units 23:45 23:45 23:45 WBC 8.4 (4.0-10.5) K/mm3 RBC 4.31 (4.1-5.6) M/mm3 Hgb 13.3 (12.5-18.0) gm/dl Hct 40.7 L (42-50) % MCV 94.4 (78-100) fl MCH 30.9 (26-32) pg MCHC 32.7 (32-36) g/dl RDW 12.6 (11.5-14.0) % Plt Count 335 (150-450) K/mm3 MPV 9.7 (7.5-11.0) fl Gran % 46.1 (36.0-66.0) % Eos # (Auto) 0.34 (0-0.5) Absolute Lymphs (auto) 3.29 (1.0-4.6) Absolute Monos (auto) 0.89 (0.0-1.3) Lymphocytes % 39.1 (24.0-44.0) % Monocytes % 10.6 (0.0-12.0) % Eosinophils % 4.0 (0.00-5.0) % Basophils % 0.2 (0.0-0.4) % Absolute Granulocytes 3.88 (1.4-6.9) Basophils # 0.02 (0-0.4) Sodium 138 (137-145) mmol/L Potassium 3.5 (3.5-5.1) mmol/L Chloride 100 (98-107) mmol/L Carbon Dioxide 27 (22-30) mmol/L Anion Gap 13.8 (5-15) MEQ/L BUN 11 (9-20) mg/dL Creatinine 1.22 (0.66-1.25) mg/dL Estimated GFR > 60.0 ML/MIN Glucose 111 H (74-106) mg/dL Calcium 9.5 (8.4-10.2) mg/dL Magnesium 1.9 (1.6-2.3) mg/dL Total Bilirubin 0.40 (0.2-1.3) mg/dL AST 21 (17-59) U/L ALT 18 (0-50) U/L Alkaline Phosphatase 64 (38-126) U/L Troponin I < 0.012 (0.000-0.034) ng/mL Serum Total Protein 9.7 H (6.3-8.2) g/dL Albumin 5.1 H (3.5-5.0) g/dL Urine Color (YELLOW) Urine Appearance (CLEAR) Urine pH (5-6) Ur Specific [place] (1.005-1.025) Urine Protein (Negative) Urine Ketones (NEGATIVE) Urine Blood (0-5) Vince/ul Urine Nitrite (NEGATIVE) Urine Bilirubin (NEGATIVE) Urine Urobilinogen (0-1) mg/dL Ur Leukocyte Esterase (NEGATIVE) Urine WBC (Auto) (0-5) /HPF Urine RBC (Auto) (0-2) /HPF U Hyaline Cast (Auto) (0-2) /LPF U Epithel Cells (Auto) (FEW) /HPF Urine Bacteria (Auto) (NEGATIVE) /HPF Urine Culture Reflexed (NO) Urine Glucose (NEGATIVE) mg/dL Salicylates (2-20) mg/dL Urine Opiates Level (NEGATIVE) Ur Methadone (NEGATIVE) Acetaminophen (10-30) ug/ml Urine Barbiturates (NEGATIVE) Ur Phencyclidine (PCP) (NEGATIVE) Urine Amphetamine (NEGATIVE) U Benzodiazepine Level (NEGATIVE) Urine Cocaine (NEGATIVE) Urine Marijuana (THC) (NEGATIVE) Ethyl Alcohol (0-10) mg/dL 04/19/20 04/20/20 04/20/20 Range/Units 23:50 00:00 00:00 WBC (4.0-10.5) K/mm3 RBC (4.1-5.6) M/mm3 Hgb (12.5-18.0) gm/dl Hct (42-50) % MCV (78-100) fl MCH (26-32) pg MCHC (32-36) g/dl RDW (11.5-14.0) % Plt Count (150-450) K/mm3 MPV (7.5-11.0) fl Gran % (36.0-66.0) % Eos # (Auto) (0-0.5) Absolute Lymphs (auto) (1.0-4.6) Absolute Monos (auto) (0.0-1.3) Lymphocytes % (24.0-44.0) % Monocytes % (0.0-12.0) % Eosinophils % (0.00-5.0) % Basophils % (0.0-0.4) % Absolute Granulocytes (1.4-6.9) Basophils # (0-0.4) Sodium (137-145) mmol/L Potassium (3.5-5.1) mmol/L Chloride (98-107) mmol/L Carbon Dioxide (22-30) mmol/L Anion Gap (5-15) MEQ/L BUN (9-20) mg/dL Creatinine (0.66-1.25) mg/dL Estimated GFR ML/MIN Glucose (74-106) mg/dL Calcium (8.4-10.2) mg/dL Magnesium (1.6-2.3) mg/dL Total Bilirubin (0.2-1.3) mg/dL AST (17-59) U/L ALT (0-50) U/L Alkaline Phosphatase (38-126) U/L Troponin I (0.000-0.034) ng/mL Serum Total Protein (6.3-8.2) g/dL Albumin (3.5-5.0) g/dL Urine Color COLORLESS (YELLOW) Urine Appearance CLEAR (CLEAR) Urine pH 6.0 (5-6) Ur Specific [place] 1.002 (1.005-1.025) Urine Protein NEGATIVE (Negative) Urine Ketones NEGATIVE (NEGATIVE) Urine Blood MODERATE (0-5) Vince/ul Urine Nitrite NEGATIVE (NEGATIVE) Urine Bilirubin NEGATIVE (NEGATIVE) Urine Urobilinogen NEGATIVE (0-1) mg/dL Ur Leukocyte Esterase NEGATIVE (NEGATIVE) Urine WBC (Auto) NONE (0-5) /HPF Urine RBC (Auto) NONE (0-2) /HPF U Hyaline Cast (Auto) 0-2 (0-2) /LPF U Epithel Cells (Auto) NONE (FEW) /HPF Urine Bacteria (Auto) NONE (NEGATIVE) /HPF Urine Culture Reflexed NO (NO) Urine Glucose NEGATIVE (NEGATIVE) mg/dL Salicylates < 1.0 L (2-20) mg/dL Urine Opiates Level NEGATIVE (NEGATIVE) Ur Methadone NEGATIVE (NEGATIVE) Acetaminophen < 10 L (10-30) ug/ml Urine Barbiturates NEGATIVE (NEGATIVE) Ur Phencyclidine (PCP) NEGATIVE (NEGATIVE) Urine Amphetamine NEGATIVE (NEGATIVE) U Benzodiazepine Level NEGATIVE (NEGATIVE) Urine Cocaine NEGATIVE (NEGATIVE) Urine Marijuana (THC) NEGATIVE (NEGATIVE) Ethyl Alcohol < 10 (0-10) mg/dL 04/20/20 04/20/20 04/20/20 Range/Units 02:43 05:43 05:43 WBC 9.3 (4.0-10.5) K/mm3 RBC 4.31 (4.1-5.6) M/mm3 Hgb 13.4 (12.5-18.0) gm/dl Hct 40.8 L (42-50) % MCV 94.7 (78-100) fl MCH 31.1 (26-32) pg MCHC 32.8 (32-36) g/dl RDW 12.8 (11.5-14.0) % Plt Count 364 (150-450) K/mm3 MPV 10.5 (7.5-11.0) fl Gran % 62.5 (36.0-66.0) % Eos # (Auto) 0.21 (0-0.5) Absolute Lymphs (auto) 2.42 (1.0-4.6) Absolute Monos (auto) 0.85 (0.0-1.3) Lymphocytes % 25.9 (24.0-44.0) % Monocytes % 9.1 (0.0-12.0) % Eosinophils % 2.3 (0.00-5.0) % Basophils % 0.2 (0.0-0.4) % Absolute Granulocytes 5.83 (1.4-6.9) Basophils # 0.02 (0-0.4) Sodium (137-145) mmol/L Potassium (3.5-5.1) mmol/L Chloride (98-107) mmol/L Carbon Dioxide (22-30) mmol/L Anion Gap (5-15) MEQ/L BUN (9-20) mg/dL Creatinine (0.66-1.25) mg/dL Estimated GFR ML/MIN Glucose (74-106) mg/dL Calcium (8.4-10.2) mg/dL Magnesium (1.6-2.3) mg/dL Total Bilirubin (0.2-1.3) mg/dL AST (17-59) U/L ALT (0-50) U/L Alkaline Phosphatase (38-126) U/L Troponin I < 0.012 < 0.012 (0.000-0.034) ng/mL Serum Total Protein (6.3-8.2) g/dL Albumin (3.5-5.0) g/dL Urine Color (YELLOW) Urine Appearance (CLEAR) Urine pH (5-6) Ur Specific [place] (1.005-1.025) Urine Protein (Negative) Urine Ketones (NEGATIVE) Urine Blood (0-5) Vince/ul Urine Nitrite (NEGATIVE) Urine Bilirubin (NEGATIVE) Urine Urobilinogen (0-1) mg/dL Ur Leukocyte Esterase (NEGATIVE) Urine WBC (Auto) (0-5) /HPF Urine RBC (Auto) (0-2) /HPF U Hyaline Cast (Auto) (0-2) /LPF U Epithel Cells (Auto) (FEW) /HPF Urine Bacteria (Auto) (NEGATIVE) /HPF Urine Culture Reflexed (NO) Urine Glucose (NEGATIVE) mg/dL Salicylates (2-20) mg/dL Urine Opiates Level (NEGATIVE) Ur Methadone (NEGATIVE) Acetaminophen (10-30) ug/ml Urine Barbiturates (NEGATIVE) Ur Phencyclidine (PCP) (NEGATIVE) Urine Amphetamine (NEGATIVE) U Benzodiazepine Level (NEGATIVE) Urine Cocaine (NEGATIVE) Urine Marijuana (THC) (NEGATIVE) Ethyl Alcohol (0-10) mg/dL 04/20/20 Range/Units 05:43 WBC (4.0-10.5) K/mm3 RBC (4.1-5.6) M/mm3 Hgb (12.5-18.0) gm/dl Hct (42-50) % MCV (78-100) fl MCH (26-32) pg MCHC (32-36) g/dl RDW (11.5-14.0) % Plt Count (150-450) K/mm3 MPV (7.5-11.0) fl Gran % (36.0-66.0) % Eos # (Auto) (0-0.5) Absolute Lymphs (auto) (1.0-4.6) Absolute Monos (auto) (0.0-1.3) Lymphocytes % (24.0-44.0) % Monocytes % (0.0-12.0) % Eosinophils % (0.00-5.0) % Basophils % (0.0-0.4) % Absolute Granulocytes (1.4-6.9) Basophils # (0-0.4) Sodium 138 (137-145) mmol/L Potassium 4.3 D (3.5-5.1) mmol/L Chloride 103 (98-107) mmol/L Carbon Dioxide 26 (22-30) mmol/L Anion Gap 13.7 (5-15) MEQ/L BUN 10 (9-20) mg/dL Creatinine 1.16 (0.66-1.25) mg/dL Estimated GFR > 60.0 ML/MIN Glucose 154 H (74-106) mg/dL Calcium 9.5 (8.4-10.2) mg/dL Magnesium (1.6-2.3) mg/dL Total Bilirubin 0.40 (0.2-1.3) mg/dL AST 21 (17-59) U/L ALT 18 (0-50) U/L Alkaline Phosphatase 65 (38-126) U/L Troponin I (0.000-0.034) ng/mL Serum Total Protein 9.5 H (6.3-8.2) g/dL Albumin 4.8 (3.5-5.0) g/dL Urine Color (YELLOW) Urine Appearance (CLEAR) Urine pH (5-6) Ur Specific [place] (1.005-1.025) Urine Protein (Negative) Urine Ketones (NEGATIVE) Urine Blood (0-5) Vince/ul Urine Nitrite (NEGATIVE) Urine Bilirubin (NEGATIVE) Urine Urobilinogen (0-1) mg/dL Ur Leukocyte Esterase (NEGATIVE) Urine WBC (Auto) (0-5) /HPF Urine RBC (Auto) (0-2) /HPF U Hyaline Cast (Auto) (0-2) /LPF U Epithel Cells (Auto) (FEW) /HPF Urine Bacteria (Auto) (NEGATIVE) /HPF Urine Culture Reflexed (NO) Urine Glucose (NEGATIVE) mg/dL Salicylates (2-20) mg/dL Urine Opiates Level (NEGATIVE) Ur Methadone (NEGATIVE) Acetaminophen (10-30) ug/ml Urine Barbiturates (NEGATIVE) Ur Phencyclidine (PCP) (NEGATIVE) Urine Amphetamine (NEGATIVE) U Benzodiazepine Level (NEGATIVE) Urine Cocaine (NEGATIVE) Urine Marijuana (THC) (NEGATIVE) Ethyl Alcohol (0-10) mg/dL - Radiology Impressions Radiology Exams & Impressions: Radiology Procedures Category Date Time Status CHEST 1 VIEW (PORTABLE) Stat Exams 04/19/20 23:28 Taken HEAD WITHOUT CONTRAST [CT] Stat Exams 04/20/20 00:42 Taken Assessment/Plan (1) Dizziness Current Visit: Yes Status: Acute Assessment & Plan: Resolved. Unsure the etiology; workup negative. Code(s): R42 - DIZZINESS AND GIDDINESS (2) Seizure Current Visit: Yes Status: Suspected Assessment & Plan: Unsure if seizure activity vs behavior. EEG scheduled for next week, outpatient. Pt to be discharged home today. Code(s): R56.9 - UNSPECIFIED CONVULSIONS (3) Mental retardation Current Visit: Yes Status: Chronic (4) Diabetes mellitus, type II Current Visit: Yes Status: Acute Qualifiers: Diabetes mellitus medical terminologist insulin use: without medical terminologist use Diabetes mellitus complication status: without complication Qualified Code(s): E11.9 - Type 2 diabetes mellitus without complications Hospital Summary - Hospital Course Hospital Course: Pt is 54 yo pt (formerly of Dr. Santos) with MR and L eye blindness who presented to ER c/o dizziness. He appeared to have some possible absence seizure activity in ER and was admitted for observation. No further episodes overnight. Workup negative (although EEG cannot be done until next week). He feels good today and will be discharged to home. - Vitals & Intake/Output Vital Signs: Vital Signs Temperature 97.5 F 04/20/20 06:56 Pulse Rate 96 H 04/20/20 06:56 Respiratory Rate 04/20/20 06:56 Blood Pressure 155/85 04/20/20 06:56 O2 Sat by Pulse Oximetry 94 L 04/20/20 07:30 Intake & Output: Intake & Output 04/17/20 04/18/20 04/19/20 04/20/20 11:59 11:59 11:59 11:59 Output Total 650 Balance -650 Weight 75.6 kg - Lab Result Diagrams: 04/20/20 05:43 04/20/20 05:43 Lab Results-Last 24 Hrs: Lab Results-Last 24 Hours 04/19/20 04/19/20 04/19/20 Range/Units 23:45 23:45 23:45 WBC 8.4 (4.0-10.5) K/mm3 RBC 4.31 (4.1-5.6) M/mm3 Hgb 13.3 (12.5-18.0) gm/dl Hct 40.7 L (42-50) % MCV 94.4 (78-100) fl MCH 30.9 (26-32) pg MCHC 32.7 (32-36) g/dl RDW 12.6 (11.5-14.0) % Plt Count 335 (150-450) K/mm3 MPV 9.7 (7.5-11.0) fl Gran % 46.1 (36.0-66.0) % Eos # (Auto) 0.34 (0-0.5) Absolute Lymphs (auto) 3.29 (1.0-4.6) Absolute Monos (auto) 0.89 (0.0-1.3) Lymphocytes % 39.1 (24.0-44.0) % Monocytes % 10.6 (0.0-12.0) % Eosinophils % 4.0 (0.00-5.0) % Basophils % 0.2 (0.0-0.4) % Absolute Granulocytes 3.88 (1.4-6.9) Basophils # 0.02 (0-0.4) Sodium 138 (137-145) mmol/L Potassium 3.5 (3.5-5.1) mmol/L Chloride 100 (98-107) mmol/L Carbon Dioxide 27 (22-30) mmol/L Anion Gap 13.8 (5-15) MEQ/L BUN 11 (9-20) mg/dL Creatinine 1.22 (0.66-1.25) mg/dL Estimated GFR > 60.0 ML/MIN Glucose 111 H (74-106) mg/dL Calcium 9.5 (8.4-10.2) mg/dL Magnesium 1.9 (1.6-2.3) mg/dL Total Bilirubin 0.40 (0.2-1.3) mg/dL AST 21 (17-59) U/L ALT 18 (0-50) U/L Alkaline Phosphatase 64 (38-126) U/L Troponin I < 0.012 (0.000-0.034) ng/mL Serum Total Protein 9.7 H (6.3-8.2) g/dL Albumin 5.1 H (3.5-5.0) g/dL Urine Color (YELLOW) Urine Appearance (CLEAR) Urine pH (5-6) Ur Specific [place] (1.005-1.025) Urine Protein (Negative) Urine Ketones (NEGATIVE) Urine Blood (0-5) Vince/ul Urine Nitrite (NEGATIVE) Urine Bilirubin (NEGATIVE) Urine Urobilinogen (0-1) mg/dL Ur Leukocyte Esterase (NEGATIVE) Urine WBC (Auto) (0-5) /HPF Urine RBC (Auto) (0-2) /HPF U Hyaline Cast (Auto) (0-2) /LPF U Epithel Cells (Auto) (FEW) /HPF Urine Bacteria (Auto) (NEGATIVE) /HPF Urine Culture Reflexed (NO) Urine Glucose (NEGATIVE) mg/dL Salicylates (2-20) mg/dL Urine Opiates Level (NEGATIVE) Ur Methadone (NEGATIVE) Acetaminophen (10-30) ug/ml Urine Barbiturates (NEGATIVE) Ur Phencyclidine (PCP) (NEGATIVE) Urine Amphetamine (NEGATIVE) U Benzodiazepine Level (NEGATIVE) Urine Cocaine (NEGATIVE) Urine Marijuana (THC) (NEGATIVE) Ethyl Alcohol (0-10) mg/dL 04/19/20 04/20/20 04/20/20 Range/Units 23:50 00:00 00:00 WBC (4.0-10.5) K/mm3 RBC (4.1-5.6) M/mm3 Hgb (12.5-18.0) gm/dl Hct (42-50) % MCV (78-100) fl MCH (26-32) pg MCHC (32-36) g/dl RDW (11.5-14.0) % Plt Count (150-450) K/mm3 MPV (7.5-11.0) fl Gran % (36.0-66.0) % Eos # (Auto) (0-0.5) Absolute Lymphs (auto) (1.0-4.6) Absolute Monos (auto) (0.0-1.3) Lymphocytes % (24.0-44.0) % Monocytes % (0.0-12.0) % Eosinophils % (0.00-5.0) % Basophils % (0.0-0.4) % Absolute Granulocytes (1.4-6.9) Basophils # (0-0.4) Sodium (137-145) mmol/L Potassium (3.5-5.1) mmol/L Chloride (98-107) mmol/L Carbon Dioxide (22-30) mmol/L Anion Gap (5-15) MEQ/L BUN (9-20) mg/dL Creatinine (0.66-1.25) mg/dL Estimated GFR ML/MIN Glucose (74-106) mg/dL Calcium (8.4-10.2) mg/dL Magnesium (1.6-2.3) mg/dL Total Bilirubin (0.2-1.3) mg/dL AST (17-59) U/L ALT (0-50) U/L Alkaline Phosphatase (38-126) U/L Troponin I (0.000-0.034) ng/mL Serum Total Protein (6.3-8.2) g/dL Albumin (3.5-5.0) g/dL Urine Color COLORLESS (YELLOW) Urine Appearance CLEAR (CLEAR) Urine pH 6.0 (5-6) Ur Specific [place] 1.002 (1.005-1.025) Urine Protein NEGATIVE (Negative) Urine Ketones NEGATIVE (NEGATIVE) Urine Blood MODERATE (0-5) Vince/ul Urine Nitrite NEGATIVE (NEGATIVE) Urine Bilirubin NEGATIVE (NEGATIVE) Urine Urobilinogen NEGATIVE (0-1) mg/dL Ur Leukocyte Esterase NEGATIVE (NEGATIVE) Urine WBC (Auto) NONE (0-5) /HPF Urine RBC (Auto) NONE (0-2) /HPF U Hyaline Cast (Auto) 0-2 (0-2) /LPF U Epithel Cells (Auto) NONE (FEW) /HPF Urine Bacteria (Auto) NONE (NEGATIVE) /HPF Urine Culture Reflexed NO (NO) Urine Glucose NEGATIVE (NEGATIVE) mg/dL Salicylates < 1.0 L (2-20) mg/dL Urine Opiates Level NEGATIVE (NEGATIVE) Ur Methadone NEGATIVE (NEGATIVE) Acetaminophen < 10 L (10-30) ug/ml Urine Barbiturates NEGATIVE (NEGATIVE) Ur Phencyclidine (PCP) NEGATIVE (NEGATIVE) Urine Amphetamine NEGATIVE (NEGATIVE) U Benzodiazepine Level NEGATIVE (NEGATIVE) Urine Cocaine NEGATIVE (NEGATIVE) Urine Marijuana (THC) NEGATIVE (NEGATIVE) Ethyl Alcohol < 10 (0-10) mg/dL 04/20/20 04/20/20 04/20/20 Range/Units 02:43 05:43 05:43 WBC 9.3 (4.0-10.5) K/mm3 RBC 4.31 (4.1-5.6) M/mm3 Hgb 13.4 (12.5-18.0) gm/dl Hct 40.8 L (42-50) % MCV 94.7 (78-100) fl MCH 31.1 (26-32) pg MCHC 32.8 (32-36) g/dl RDW 12.8 (11.5-14.0) % Plt Count 364 (150-450) K/mm3 MPV 10.5 (7.5-11.0) fl Gran % 62.5 (36.0-66.0) % Eos # (Auto) 0.21 (0-0.5) Absolute Lymphs (auto) 2.42 (1.0-4.6) Absolute Monos (auto) 0.85 (0.0-1.3) Lymphocytes % 25.9 (24.0-44.0) % Monocytes % 9.1 (0.0-12.0) % Eosinophils % 2.3 (0.00-5.0) % Basophils % 0.2 (0.0-0.4) % Absolute Granulocytes 5.83 (1.4-6.9) Basophils # 0.02 (0-0.4) Sodium (137-145) mmol/L Potassium (3.5-5.1) mmol/L Chloride (98-107) mmol/L Carbon Dioxide (22-30) mmol/L Anion Gap (5-15) MEQ/L BUN (9-20) mg/dL Creatinine (0.66-1.25) mg/dL Estimated GFR ML/MIN Glucose (74-106) mg/dL Calcium (8.4-10.2) mg/dL Magnesium (1.6-2.3) mg/dL Total Bilirubin (0.2-1.3) mg/dL AST (17-59) U/L ALT (0-50) U/L Alkaline Phosphatase (38-126) U/L Troponin I < 0.012 < 0.012 (0.000-0.034) ng/mL Serum Total Protein (6.3-8.2) g/dL Albumin (3.5-5.0) g/dL Urine Color (YELLOW) Urine Appearance (CLEAR) Urine pH (5-6) Ur Specific [place] (1.005-1.025) Urine Protein (Negative) Urine Ketones (NEGATIVE) Urine Blood (0-5) Vince/ul Urine Nitrite (NEGATIVE) Urine Bilirubin (NEGATIVE) Urine Urobilinogen (0-1) mg/dL Ur Leukocyte Esterase (NEGATIVE) Urine WBC (Auto) (0-5) /HPF Urine RBC (Auto) (0-2) /HPF U Hyaline Cast (Auto) (0-2) /LPF U Epithel Cells (Auto) (FEW) /HPF Urine Bacteria (Auto) (NEGATIVE) /HPF Urine Culture Reflexed (NO) Urine Glucose (NEGATIVE) mg/dL Salicylates (2-20) mg/dL Urine Opiates Level (NEGATIVE) Ur Methadone (NEGATIVE) Acetaminophen (10-30) ug/ml Urine Barbiturates (NEGATIVE) Ur Phencyclidine (PCP) (NEGATIVE) Urine Amphetamine (NEGATIVE) U Benzodiazepine Level (NEGATIVE) Urine Cocaine (NEGATIVE) Urine Marijuana (THC) (NEGATIVE) Ethyl Alcohol (0-10) mg/dL 04/20/20 Range/Units 05:43 WBC (4.0-10.5) K/mm3 RBC (4.1-5.6) M/mm3 Hgb (12.5-18.0) gm/dl Hct (42-50) % MCV (78-100) fl MCH (26-32) pg MCHC (32-36) g/dl RDW (11.5-14.0) % Plt Count (150-450) K/mm3 MPV (7.5-11.0) fl Gran % (36.0-66.0) % Eos # (Auto) (0-0.5) Absolute Lymphs (auto) (1.0-4.6) Absolute Monos (auto) (0.0-1.3) Lymphocytes % (24.0-44.0) % Monocytes % (0.0-12.0) % Eosinophils % (0.00-5.0) % Basophils % (0.0-0.4) % Absolute Granulocytes (1.4-6.9) Basophils # (0-0.4) Sodium 138 (137-145) mmol/L Potassium 4.3 D (3.5-5.1) mmol/L Chloride 103 (98-107) mmol/L Carbon Dioxide 26 (22-30) mmol/L Anion Gap 13.7 (5-15) MEQ/L BUN 10 (9-20) mg/dL Creatinine 1.16 (0.66-1.25) mg/dL Estimated GFR > 60.0 ML/MIN Glucose 154 H (74-106) mg/dL Calcium 9.5 (8.4-10.2) mg/dL Magnesium (1.6-2.3) mg/dL Total Bilirubin 0.40 (0.2-1.3) mg/dL AST 21 (17-59) U/L ALT 18 (0-50) U/L Alkaline Phosphatase 65 (38-126) U/L Troponin I (0.000-0.034) ng/mL Serum Total Protein 9.5 H (6.3-8.2) g/dL Albumin 4.8 (3.5-5.0) g/dL Urine Color (YELLOW) Urine Appearance (CLEAR) Urine pH (5-6) Ur Specific [place] (1.005-1.025) Urine Protein (Negative) Urine Ketones (NEGATIVE) Urine Blood (0-5) Vince/ul Urine Nitrite (NEGATIVE) Urine Bilirubin (NEGATIVE) Urine Urobilinogen (0-1) mg/dL Ur Leukocyte Esterase (NEGATIVE) Urine WBC (Auto) (0-5) /HPF Urine RBC (Auto) (0-2) /HPF U Hyaline Cast (Auto) (0-2) /LPF U Epithel Cells (Auto) (FEW) /HPF Urine Bacteria (Auto) (NEGATIVE) /HPF Urine Culture Reflexed (NO) Urine Glucose (NEGATIVE) mg/dL Salicylates (2-20) mg/dL Urine Opiates Level (NEGATIVE) Ur Methadone (NEGATIVE) Acetaminophen (10-30) ug/ml Urine Barbiturates (NEGATIVE) Ur Phencyclidine (PCP) (NEGATIVE) Urine Amphetamine (NEGATIVE) U Benzodiazepine Level (NEGATIVE) Urine Cocaine (NEGATIVE) Urine Marijuana (THC) (NEGATIVE) Ethyl Alcohol (0-10) mg/dL - Radiology Exams Ordered Rad Exams-Entire Visit: Radiology Procedures Category Date Time Status CHEST 1 VIEW (PORTABLE) Stat Exams 04/19/20 23:28 Taken HEAD WITHOUT CONTRAST [CT] Stat Exams 04/20/20 00:42 Taken - Procedures and Test Procedures and Tests throughout Hospitalization: Therapy Orders & Screens 04/20/20 04:10 EKG STAT Comment: Diagnosis: near syncope - Discharge Disposition: Home, Self-Care Condition: Good Prescriptions: Continue Omeprazole [Prilosec] 40 mg PO BID Rosuvastatin Calcium [Crestor] 10 mg PO DAILY Levothyroxine Sodium 100 Mcg [Synthroid 100 Mcg] 50 mcg PO DAILY Haloperidol 1 mg [Haldol 1 mg] 3 mg PO HS Haloperidol 0.5 mg PO DAILY Multivitamin W-Minerals/Lutein [Cerovite Silver Tablet] 1 each PO DAILY Docusate Sodium 100 mg [Colace 100 MG] 100 mg PO BID Lamotrigine [Lamictal] 150 mg PO HS Fluoxetine HCl 20 mg PO DAILY lisinopriL [Lisinopril] 5 mg PO DAILY Risperidone [Risperdal] 0.5 mg PO BID Travorpost Ophth [Travatan 0.004% Opth Mary] 1 drop OP QHS Metformin HCl 500 mg [Glucophage 500 MG] 1 tablet PO DAILY Follow up with: DELANEY MELENDEZ [ACTIVE STAFF] - 04/27/20 10:45 am
--- NOTE | 2020-04-20 20:05 | XRAY ---
Exam: AP upright portable chest film from 04/19/2020. Comparison: AP upright portable chest film from 11/08/2018. Indication: Rule out pneumonia. Findings: The film was obtained in a mildly lordotic projection. The transverse heart size is normal. The beau and mediastinal structures appear unremarkable. 2 with 3 small calcified granulomas are seen at the right lung base. Minimal linear atelectasis/scarring is seen within both peripheral midlung melendez. No air space infiltrates, vascular congestion, pneumothorax, or pleural fluid is seen. No acute osseous process is seen. Impression: 1. No infiltrates to suggest focal pneumonia. 2. Incidental findings, as discussed above.
--- NOTE | 2020-04-20 20:26 | XRAY ---
Exam: CT of the head without IV contrast from 04/20/2020. Comparison: None. Indication: 54-year-old male with dizziness, no known injury, patient is blind in left eye. Technique: Non-IV contrast axial images were obtained through the brain. Reconstructed coronal and sagittal images were created and reviewed. Findings: The ventricles are of unremarkable size and configuration. No focal mass effect or midline shift is seen. I see no evidence of acute intracranial hemorrhage or abnormal extra-axial fluid collection. The medina matter-white matter interfaces appear unremarkable. No low attenuation infarct is seen within a major cerebral or cerebellar artery distribution. The cortical sulci and basilar cisterns appear unremarkable. The calvarium of the skull appears intact. There is some high attenuation material within the globe of the left eye which may be postoperative. The visualized paranasal sinuses and mastoid air cells are clear without air-fluid levels. Impression: 1. No acute intracranial abnormality is seen.
== END 2020-04-20 11:15 | disposition home or self-care (01) ==
LOC: ED 23:25 → UNDOADMOB 04-20 02:06 → MED SURG 04-20 02:06
PROVIDERS: ADMIT Family Medicine; ATTEND Family Medicine
DX: R42 Dizziness and giddiness (principal); R56.9 Unspecified convulsions; F79 Unspecified intellectual disabilities; E11.9 Type 2 diabetes mellitus without complications; H54.62 Unqualified visual loss, left eye, normal vision right eye; Z79.899 Other long term (current) drug therapy
CPT/HCPCS: 36000; 36415; 70450; 71045; 80053; 80307; 81001; 83735; 84484; 85025; 93005; 93041; 94760; 94762; 99285; G0480; 93268; G0378

== ENCOUNTER 2020-12-04 21:21 | Emergency (ER) | payer MEDICARE ==
[2020-12-04] MEDS ORDERED: TORAdol 30 mg Injection IM ONE (21:45)
[2020-12-04] MEDS ORDERED: Levofloxacin 500 MG Tablet PO ONE (21:45)
[2020-12-04] MEDS ORDERED: Levofloxacin 500 MG Tablet ONE (22:07)
[2020-12-04] MEDS ORDERED: TORAdol 30 mg Injection ONE (22:07)
--- NOTE | 2020-12-04 22:18 | ERPHSYRPT ---
- History of Present Illness Time Seen by Provider: 12/04/20 21:28 Source: patient, family Exam Limitations: no limitations Patient Subjective Stated Complaint: pt c/o pain in his testicles since yesterday Triage Nursing Assessment: pt alert, answers questions well. skin pink warm and dry. respirations nonlabored with lungs cta. pt ambulatory with steady gait noted. Physician History: 55 years old male with history of mood disorder presented in the ER with chief complaint of sharp moderate intensity pain both testicles and scrotum without any swelling and hurts to urinate starting this morning with gradually worse mahin. No urethral discharge. No fever or chills. Timing/Duration: today, gradual onset, worse Activites at Onset: rest Quality: sharpness Onset Location: groin, scrotal, right testicle, left testicle Severity of Pain-Max: moderate Severity of Pain-Current: moderate Modifying Factors: Improves With: nothing Associated Symptoms: denies symptoms Prior abdominal problems: none Sexual intercourse history: not active Allergies/Adverse Reactions: latex [Latex] Allergy (Verified 12/04/20 21:55) BLEACH Allergy (Mild, Uncoded 12/04/20 21:55) Home Medications: Levothyroxine Sodium 100 Mcg [Synthroid 100 Mcg] 50 mcg PO DAILY 05/28/16 [History] Omeprazole [Prilosec] 40 mg PO BID 05/28/16 [History] Rosuvastatin Calcium [Crestor] 10 mg PO DAILY 05/28/16 [History] Docusate Sodium 100 mg [Colace 100 MG] 100 mg PO BID 06/27/17 [History] Multivitamin W-Minerals/Lutein [Cerovite Silver Tablet] 1 each PO DAILY 06/27/17 [History] Lamotrigine [Lamictal] 150 mg PO HS 09/02/18 [History] Fluoxetine HCl 20 mg PO DAILY 11/08/18 [History] lisinopriL [Lisinopril] 5 mg PO DAILY 11/08/18 [History] Metformin HCl 500 mg [Glucophage 500 MG] 1 tablet PO BID 04/20/20 [History] Risperidone [Risperdal] 0.5 mg PO BID 04/20/20 [History] Travorpost Ophth [Travatan 0.004% Opth Mary] 1 drop OP BID 04/20/20 [History] Hydroxyzine HCl 10 mg PO DAILY PRN PRN 12/04/20 [History] Hx Tetanus, Diphtheria Vaccination/Date Given: Yes Hx Influenza Vaccination/Date Given: No Hx Pneumococcal Vaccination/Date Given: No Immunizations Up to Date: Yes Travel Risk - International Travel Have you traveled outside of the country in past 3 weeks: No - Coronavirus Screening Are you exhibiting any of the following symptoms?: No Close contact with a COVID-19 positive Pt in past 14-21 Days: No - Vaccine Status Have you recieved a Covid-19 vaccination: Yes [employer]: Moderna - Vaccination Dates Date of 2cond Vaccination (if applicable): 11/22/20 - Past Medical History Pertinent Past Medical History: Yes Neurological History: Other ENT History: Other Cardiac History: No Pertinent History Respiratory History: No Pertinent History Endocrine Medical History: Diabetes Type II Musculoskeletal History: Other GI Medical History: Esophageal Disorder, GERD History: No Pertinent History Psycho-Social History: Anxiety, Depression, Other Male Reproductive Disorders: No Pertinent History Other Medical History: 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 EXPLOSIVE DISORDER. Mild Mental Retardation. Behavior Disorder. 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 - Past Surgical History Past Surgical History: Yes Neuro Surgical History: No Pertinent History Cardiac: No Pertinent History Respiratory: No Pertinent History Gastrointestinal: Cholecystectomy, Hernia Repair Genitourinary: No Pertinent History Musculoskeletal: No Pertinent History Male Surgical History: No Pertinent History Other Surgical History: TONSILECTOMY , FOOT SURGERY, AMP OF BIG TOE AT 2 - Social History Smoking Status: Never smoker Exposure to second hand smoke: No Alcohol Use: None Drug Use: none Patient Lives Alone: No Significant Family History: no pertinent family hx - Review of Systems Constitutional: No Symptoms Eyes: No Symptoms Ears, Nose, & Throat: No Symptoms Respiratory: No Symptoms Cardiac: No Symptoms Abdominal/Gastrointestinal: No Symptoms Genitourinary Symptoms: Dysuria, Testicle Pain Musculoskeletal: No Symptoms Skin: No Symptoms Neurological: No Symptoms Endocrine: No Symptoms - Nursing Vital Signs Nursing Vital Signs: Initial Vital Signs Pulse Rate 91 H 12/04/20 21:38 Respiratory Rate 18 12/04/20 21:38 Blood Pressure 123/83 12/04/20 21:38 O2 Sat by Pulse Oximetry 96 12/04/20 21:38 Pain Scale Pain Intensity 8 - Physical Exam General Appearance: no apparent distress, alert, anxiety Eye Exam: PERRL/EOMI Ears, Nose, Throat Exam: pharynx normal Neck Exam: normal inspection, supple, full range of motion Respiratory Exam: normal breath sounds, lungs clear Cardiovascular Exam: regular rate/rhythm, normal heart sounds Gastrointestinal/Abdomen Exam: soft, normal bowel sounds, No tenderness Male Genital Exam: normal genitalia, no hernia, epididymal tenderness (Bilateral), scrotum tenderness (R), scrotum tenderness (L), circumcised, No hernia mass, No testicular tenderness (R), No testicular tenderness (L) Back Exam: normal inspection Extremity Exam: normal inspection, normal range of motion Neurologic Exam: alert, oriented x 3, cooperative Skin Exam: normal color SpO2 Interpretation: normal SpO2: 96 O2 Delivery: Room Air Ordered Tests: Active Orders 24 hr Category Date Time Status POCT GLUCOSE Stat Lab 12/04/20 21:43 Completed UA W/RFX UR CULTURE Stat Lab 12/04/20 21:56 Completed Medication Summary Discontinued Medications Generic Name Dose Route Start Last Admin Trade Name Funmilayo PRN Reason Stop Dose Admin Ketorolac Tromethamine 30 mg 12/04/20 21:45 12/04/20 22:09 Toradol 30 Mg Injection IM 12/04/20 21:46 30 mg STAT ONE Administration Ketorolac Tromethamine Confirm 12/04/20 22:07 Toradol 30 Mg Injection Administered 12/04/20 22:08 Dose 30 mg .ROUTE .STK-MED ONE Levofloxacin 500 mg 12/04/20 21:45 12/04/20 22:12 Levofloxacin 500 Mg Tablet PO 12/04/20 21:46 500 mg STAT ONE Administration Levofloxacin Confirm 12/04/20 22:07 Levofloxacin 500 Mg Tablet Administered 12/04/20 22:08 Dose 500 mg .ROUTE .STK-MED ONE Lab/Rad Data: Laboratory Results 12/04/20 12/04/20 Range/Units 21:56 21:43 POC Glucometer 92 (74 to 106) mg/dL Urine Color COLORLESS (YELLOW) Urine Appearance CLEAR (CLEAR) Urine pH 6.0 (5-6) Ur Specific [place] 1.003 (1.005-1.025) Urine Protein NEGATIVE (Negative) Urine Ketones NEGATIVE (NEGATIVE) Urine Blood SMALL (0-5) Vince/ul Urine Nitrite NEGATIVE (NEGATIVE) Urine Bilirubin NEGATIVE (NEGATIVE) Urine Urobilinogen NEGATIVE (0-1) mg/dL Ur Leukocyte Esterase NEGATIVE (NEGATIVE) Urine WBC (Auto) NONE (0-5) /HPF Urine RBC (Auto) NONE (0-2) /HPF U Epithel Cells (Auto) NONE (FEW) /HPF Urine Bacteria (Auto) NONE (NEGATIVE) /HPF Urine Culture Reflexed NO (NO) Urine Glucose NEGATIVE (NEGATIVE) mg/dL - Progress Progress: improved Progress Note: 12/04/20 22:17 Is given Toradol for symptomatic relief. No abdominal pain/tenderness at all. No inguinal hernias. No testicular tenderness. No obvious scrotal swelling. Has some scratch nicolas on the left scrotum. No obvious erythema. Tenderness cord bilaterally. I believe patient has epididymitis, will treat with Levaquin/Cipro. Outpatient follow-up recommended. Counseled pt/family regarding: lab results, diagnosis, need for follow-up - Departure Departure Disposition: Home Clinical Impression: Epididymitis Condition: Stable Critical Care Time: No Referrals: RUY HOUGH [Primary Care Provider] - Follow Up with PCP/3 days Instructions: Urinary Tract Infection, Adult (DC), Epididymitis (DC) Additional Instructions: Use Tylenol/ibuprofen as needed for pain. Drink plenty of fluids. Follow-up with primary care physician for reevaluation. Return to ER for worsening pain or if develop swelling, difficulty urination etc. Prescriptions: Ciprofloxacin [Cipro 500 MG] 500 mg PO BID #14 tablet
[2020-12-04 22:21] LABS: Appearance CLEAR (CLEAR); Bilirubin NEGATIVE (NEGATIVE); Blood SMALL Ery/ul (0-5); Glucose NEGATIVE (NEGATIVE); Ketones NEGATIVE (NEGATIVE); Leukocyte Esterase NEGATIVE (NEGATIVE); Nitrite NEGATIVE (NEGATIVE); Protein,Urine Dip NEGATIVE (Negative); Specific Gravity 1.003 (1.005-1.025); Urobilinogen NEGATIVE mg/dL (0-1)
[2020-12-04] MEDS ORDERED: NORCO 5/325 MG PO ONE (23:13)
[2020-12-04] MEDS ORDERED: NORCO 5/325 MG ONE (23:14)
[2020-12-04 23:45] VITALS: BP 102/62; PULSE 85; O2SAT 98
== END 2020-12-04 23:45 | disposition home or self-care (01) ==
LOC: ED 21:21
DX: N45.1 Epididymitis (principal); E11.9 Type 2 diabetes mellitus without complications; Z79.899 Other long term (current) drug therapy
CPT/HCPCS: 81001; 82947; 96372; 99284; J1885; A9270-GY

== ENCOUNTER 2021-03-25 08:21 | Emergency (ER) | payer MEDICARE ==
--- NOTE | 2021-03-25 09:03 | XRAY ---
Indication: Pain following fall. Comparison: None 3 view right wrist obtained. No bony, articular, or soft tissue abnormalities.
--- NOTE | 2021-03-25 09:05 | XRAY ---
Indication: Pain following fall. Comparison: None 5 view lumbar spine demonstrates 5 lumbar segments in normal alignment with vertebral body heights/disc spaces maintained. Minimal multilevel anterior endplate spurring, cholecystectomy clips, and left groin hernia mesh graft. No other bony, articular, or soft tissue abnormalities.
--- NOTE | 2021-03-25 09:12 | ERPHSYRPT ---
- History of Present Illness Source: patient, EMS Exam Limitations: other (Intellectually challenged) Patient Subjective Stated Complaint: fall early this am, R wrist pain and lower back pain Triage Nursing Assessment: pt to ED by EMS c/o mechanical fall early this morning and now has R wrist and lower back pain 05/05. wrist gauze wrapped by EMS for pain. R wrist and lower chargeback analyst to palp. A&Ox4. did not hit head, no LOC. Occurred: just prior to arrival, this morning Reason for Fall: lost balance Injuries/Pain Location: upper extremity (R wrist/L-spine) Loss of Consciousness: no loss of consciousness Quality: aching Severity of Pain-Max: moderate Severity of Pain-Current: moderate Modifying Factors: Improves With: movement Associated Symptoms (Fall): back pain, extremity injury, No abdominal pain, No confusion, No chest pain, No dizziness, No headache, No lightheadedness, No muscle spasms, No nausea, No neck pain, No ringing in ears, No seizures, No shortness of breath, No slurred speech, No trouble walking, No vomiting, No visi on changes Allergies/Adverse Reactions: latex [Latex] Allergy (Verified 03/25/21 08:30) BLEACH Allergy (Mild, Uncoded 03/25/21 08:30) Home Medications: Levothyroxine Sodium 100 Mcg [Synthroid 100 Mcg] 50 mcg PO DAILY 05/28/16 [History] Omeprazole [Prilosec] 40 mg PO BID 05/28/16 [History] Rosuvastatin Calcium [Crestor] 10 mg PO DAILY 05/28/16 [History] Docusate Sodium 100 mg [Colace 100 MG] 100 mg PO BID 06/27/17 [History] Multivitamin W-Minerals/Lutein [Cerovite Silver Tablet] 1 each PO DAILY 06/27/17 [History] Lamotrigine [Lamictal] 150 mg PO HS 09/02/18 [History] Fluoxetine HCl 20 mg PO DAILY 11/08/18 [History] lisinopriL [Lisinopril] 5 mg PO DAILY 11/08/18 [History] Metformin HCl 500 mg [Glucophage 500 MG] 1 tablet PO BID 04/20/20 [History] Risperidone [Risperdal] 0.5 mg PO BID 04/20/20 [History] Travorpost Ophth [Travatan 0.004% Opth Mary] 1 drop OP BID 04/20/20 [History] Hydroxyzine HCl 10 mg PO DAILY PRN PRN 12/04/20 [History] Hx Tetanus, Diphtheria Vaccination/Date Given: Yes Hx Influenza Vaccination/Date Given: No Hx Pneumococcal Vaccination/Date Given: No Immunizations Up to Date: No Travel Risk - International Travel Have you traveled outside of the country in past 3 weeks: No - Coronavirus Screening Are you exhibiting any of the following symptoms?: No Close contact with a COVID-19 positive Pt in past 14-21 Days: No - Vaccine Status Have you recieved a Covid-19 vaccination: Yes Hydroblaster: Unknown - Vaccination Dates Dates if Unknown: unknown - Review of Systems Constitutional: No Symptoms Eyes: No Symptoms Ears, Nose, & Throat: No Symptoms Respiratory: No Symptoms Cardiac: No Symptoms Abdominal/Gastrointestinal: No Symptoms Genitourinary Symptoms: No Symptoms Skin: No Symptoms Neurological: No Symptoms Psychological: No Symptoms Endocrine: No Symptoms Hematologic/Lymphatic: No Symptoms Immunological/Allergic: No Symptoms - Past Medical History Pertinent Past Medical History: Yes Neurological History: Other ENT History: Other Cardiac History: No Pertinent History Respiratory History: No Pertinent History Endocrine Medical History: Diabetes Type II Musculoskeletal History: Other GI Medical History: Esophageal Disorder, GERD History: No Pertinent History Psycho-Social History: Anxiety, Depression, Other Male Reproductive Disorders: No Pertinent History Other Medical History: 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 EXPLOSIVE DISORDER. Mild Mental Retardation. Behavior Disorder. 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 - Past Surgical History Past Surgical History: Yes Neuro Surgical History: No Pertinent History Cardiac: No Pertinent History Respiratory: No Pertinent History Gastrointestinal: Cholecystectomy, Hernia Repair Genitourinary: No Pertinent History Musculoskeletal: No Pertinent History Male Surgical History: No Pertinent History Other Surgical History: TONSILECTOMY , FOOT SURGERY, AMP OF BIG TOE AT 2 - Social History Smoking Status: Never smoker Exposure to second hand smoke: No Alcohol Use: None Drug Use: none Patient Lives Alone: Yes Significant Family History: no pertinent family hx - Nursing Vital Signs Nursing Vital Signs: Initial Vital Signs Temperature 97.5 F 03/25/21 08:24 Pulse Rate 87 03/25/21 08:24 Respiratory Rate 20 03/25/21 08:24 Blood Pressure 125/86 03/25/21 08:24 O2 Sat by Pulse Oximetry 99 03/25/21 08:24 Pain Scale Pain Intensity 10 - [place] Coma Score Best Eye Response ([place]): (4) open spontaneously Best Verbal Response (Jannette): (5) oriented Best Motor Response ([place]): (6) obeys commands Jannette Total: 15 - Physical Exam General Appearance: no apparent distress Head Injury: no evidence of injury Eye Exam: PERRL/EOMI, eyes nml inspection ENT Exam: airway nml, nml ext.inspection, No evidence of ENT injury, No dental injury, No clear fluid (ears), No clear fluid (nose) Neck Exam: supple, trachea midline, full range of motion (C-spine NTTP) Respiratory/Chest Exam: normal breath sounds, No chest tenderness, No respiratory distress Cardiovascular Exam: normal heart sounds, regular rate/rhythm, normal peripheral pulses, No murmur, No edema Gastrointestinal Exam: soft, normal bowel sounds, No tenderness Back Exam: other (T-spine nttp/L-spine mild ttp) Extremity Exam: capillary refill <3 sec, pelvis stable, other (R wrist w mild TTP/No deformity/No edema/Good radial pulse, distal sensation, and capillary return) Neurologic Exam: alert, oriented x 3, cooperative, diesel engine engineer II-XII nml as tested, normal mood/affect, nml cerebellar function, nml station & gait, sensation nml, No motor deficits, No sensory deficit Skin Exam: normal color, warm, dry SpO2 Interpretation: normal SpO2: 99 O2 Delivery: Room Air - Course Nursing assessment & vital signs reviewed: Yes - Radiology Exams L-Spine X-ray Interpretation: Discussed w/ radiologist (NAD) Wrist X-ray Interpretation: Discussed w/ radiologist (R wrist neg per Rad) Ordered Tests: Active Orders 24 hr Category Date Time Status Rosalino Bandage Application -[facility] STAT Care 03/25/21 09:17 Completed LUMBAR COMPLETE (MIN 4 VIEWS) Stat Exams 03/25/21 08:54 Completed WRIST (MIN 3 VIEWS) Stat Exams 03/25/21 08:54 Completed Medication Summary Discontinued Medications Generic Name Dose Route Start Last Admin Trade Name Freq PRN Reason Stop Dose Admin Acetaminophen 1,000 mg 03/25/21 09:42 03/25/21 09:45 Tylenol Extra Strength 500 Mg PO 03/25/21 09:43 1,000 mg STAT ONE Administration Acetaminophen Confirm 03/25/21 09:45 Tylenol Extra Strength 500 Mg Administered 03/25/21 09:46 Dose 1,000 mg .ROUTE .STK-MED ONE - Progress Progress: improved Progress Note: 03/25/21 09:17 Rosalino wrap R wrist per nursing/NVI Counseled pt/family regarding: diagnosis, need for follow-up, rad results - Departure Departure Disposition: Home Clinical Impression: Right wrist sprain, Lumbar strain Condition: Stable Critical Care Time: No Referrals: RUY HOUGH [Primary Care Provider] - Instructions: Low Back Pain (DC), Wrist Sprain (DC), Preventing Falls Additional Instructions: Motrin/Tylenol for pain Rosalino wrap Right wrist for 2-3 days Ice to R wrist for 6-12 hours Follow up with your family
[2021-03-25] MEDS ORDERED: TYLENOL EXTRA STRENGTH 500 MG PO ONE (09:42)
[2021-03-25] MEDS ORDERED: TYLENOL EXTRA STRENGTH 500 MG ONE (09:45)
[2021-03-25 11:03] VITALS: BP 118/79; PULSE 83
[2021-03-25 20:04] VITALS: O2SAT 99
== END 2021-03-25 10:45 | disposition home or self-care (01) ==
LOC: ED 08:21
DX: S63.501A Unspecified sprain of right wrist, initial encounter (principal); S39.012A Strain of muscle, fascia and tendon of lower back, initial encounter; M25.531 Pain in right wrist; M54.5 Low back pain; Z79.899 Other long term (current) drug therapy; E11.9 Type 2 diabetes mellitus without complications
CPT/HCPCS: 72110; 73110; 99284; A9270-GY

== ENCOUNTER 2023-11-15 21:34 | Emergency (ER) | payer MEDICARE ==
[2023-11-15 21:58] VITALS: TEMP 98.2
--- NOTE | 2023-11-15 22:03 | ERPHSYRPT ---
- History of Present Illness Time Seen by Provider: 11/15/23 22:02 Source: patient, EMS Patient Subjective Stated Complaint: pt reports he had a panic attack this evening, states he had never had one before, states he could not relax or sleep and felt light headed. pt reports that nothing unusual or stressful happened this evening prior to his panic attack. pt reports that he feels like he is not getting enough oxygen. pt has a risk management specialist he had contact with this evening who has called and spoke with security staff. pt states he lives near his parents but they are out of town ([facility]) for his brothers open heart surgery tomorrow. Triage Nursing Assessment: pt is aox3, afebrile, resps easy and non labored, radial pulses strong and equal, cap refill < 3 seconds, pt abd soft non tender, BS present normoactive x 4, pt skin pink warm dry. pt is inquisitive and appears anxious at time of triage. pt was able to ambulate to restroom with standby assist. Physician History: This is a 58-year-old white male patient who has a history of anxiety, depression and is mentally deficient and brought to the emergency department by the electro mechanical engineer service because the patient called them because he felt as though he was not breathing right and he thought maybe he might be having a panic attack. Ordinarily, the patient is cared for by his brother. However, his brother had to go to [place] to have open heart surgery. The patient's parents went to stay with the patient's brother in [place] leaving this patient alone. Patient was concerned that there was no one around and he began to panic. Patient's room air oxygen saturation levels 99% his remainder vital signs are also stable. Patient denies chest pain and denies shortness of breath on arrival. His immediate concern was that he wanted to stay at the hospital. Apparently, no family will be available to stay with him until 9 AM on 11/16/2023. Patient is not suicidal and patient is not homicidal. Patient has additional medical history of hypertension, hypothyroidism, hyperlipidemia, diabetes, gastroesophageal reflux disease Timing/Duration: today Severity of Symptoms-Max: moderate Severity of Symptoms-Current: mild Context related to: living circumstances Associated Symptoms: anxiety Previous symptoms: no prior history, no recent treatment Allergies/Adverse Reactions: latex [Latex] Allergy (Verified 11/15/23 21:58) BLEACH Allergy (Mild, Uncoded 11/15/23 21:58) Home Medications: Levothyroxine Sodium 100 Mcg [Synthroid 100 Mcg] 50 mcg PO DAILY 05/28/16 [History] Omeprazole [Prilosec] 40 mg PO BID 05/28/16 [History] Rosuvastatin Calcium [Crestor] 10 mg PO DAILY 05/28/16 [History] Docusate Sodium 100 mg [Docusate Sodium 100 MG] 100 mg PO BID 06/27/17 [History] Multivitamin W-Minerals/Lutein [Cerovite Silver Tablet] 1 each PO DAILY 06/27/17 [History] lamoTRIgine [Lamictal] 150 mg PO HS 09/02/18 [History] Fluoxetine HCl 20 mg PO DAILY 11/08/18 [History] lisinopriL [Lisinopril] 5 mg PO DAILY 11/08/18 [History] Metformin HCl 500 mg [Glucophage 500 MG] 1 tablet PO BID 04/20/20 [History] Travorpost Ophth [Travatan 0.004% Opth Mary] 1 drop OP BID 04/20/20 [History] risperiDONE [Risperdal] 0.5 mg PO BID 04/20/20 [History] hydrOXYzine HCL [Hydroxyzine HCl] 10 mg PO DAILY PRN PRN 12/04/20 [History] Hx Tetanus, Diphtheria Vaccination/Date Given: Yes Hx Influenza Vaccination/Date Given: No Hx Pneumococcal Vaccination/Date Given: No Immunizations Up to Date: Yes Travel Risk - International Travel Have you traveled outside of the country in past 3 weeks: No - Emerging Infectious Disease Are you exhibiting symptoms associated with any current EIDs: No - Past Medical History Pertinent Past Medical History: Yes Neurological History: Other ENT History: Other Cardiac History: No Pertinent History Respiratory History: No Pertinent History Endocrine Medical History: Diabetes Type II Musculoskeletal History: Other GI Medical History: Esophageal Disorder, GERD History: No Pertinent History Psycho-Social History: Anxiety, Depression, Other Male Reproductive Disorders: No Pertinent History Other Medical History: 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 EXPLOSIVE DISORDER. Mild Mental Retardation. Behavior Disorder. 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 - Past Surgical History Past Surgical History: Yes Neuro Surgical History: No Pertinent History Cardiac: No Pertinent History Respiratory: No Pertinent History Gastrointestinal: Cholecystectomy, Hernia Repair Genitourinary: No Pertinent History Musculoskeletal: No Pertinent History Male Surgical History: No Pertinent History Other Surgical History: TONSILECTOMY , FOOT SURGERY, AMP OF BIG TOE AT 2 Significant Family History: no pertinent family hx - Social History Smoking Status: Never smoker Exposure to second hand smoke: No Alcohol Use: None Drug Use: none Patient Lives Alone: Yes - Nursing Vital Signs Nursing Vital Signs: Initial Vital Signs Temperature 98.2 F 11/15/23 21:44 Pulse Rate 83 11/15/23 21:44 Respiratory Rate 18 11/15/23 21:44 Blood Pressure 164/100 11/15/23 21:44 O2 Sat by Pulse Oximetry 99 11/15/23 21:44 Pain Scale Pain Intensity 0 - Physical Exam SpO2: 99 - Course Nursing assessment & vital signs reviewed: Yes EKG Interpreted by Me: RATE (71), Sinus Rhythm, NORMAL AXIS, NORMAL INTERVALS, NORMAL QRS, NORMAL ST-T, Other (No acute ischemic) Ordered Tests: Active Orders 24 hr Category Date Time Status Lead Java Programmer STAT Care 11/15/23 22:03 Active Clean Catch Urine Specimen STAT Care 11/15/23 22:03 Active EKG-ER Only STAT Care 11/15/23 22:03 Active IV Insertion STAT Care 11/15/23 22:04 Active ACETAMINOPHEN Stat Lab 11/15/23 22:10 Completed CBC W DIFF Stat Lab 11/15/23 22:10 Completed CMP Stat Lab 11/15/23 22:10 Completed D-DIMER QUANTITATIVE Stat Lab 11/15/23 22:10 Completed ETHYL ALCOHOL Stat Lab 11/15/23 22:10 Completed SALICYLATE Stat Lab 11/15/23 22:10 Completed TROPONIN Q4H Lab 11/15/23 22:10 Completed UA W/RFX UR CULTURE Stat Lab 11/15/23 22:28 Completed Urine Triage Profile Stat Lab 11/15/23 22:28 Completed Medication Summary Discontinued Medications Generic Name Dose Route Start Last Admin Trade Name Freq PRN Reason Stop Dose Admin Lorazepam 1 mg 11/15/23 23:17 Lorazepam 2 Mg/1 Ml 2 Mg Vial IV 11/15/23 23:18 STAT ONE Lorazepam Confirm 11/15/23 23:35 Lorazepam 2 Mg/1 Ml 2 Mg Vial Administered 11/15/23 23:36 Dose 2 mg .ROUTE .STK-MED ONE Lab/Rad Data: Laboratory Result Diagrams 11/15/23 22:10 11/15/23 22:10 Laboratory Results 11/15/23 11/15/23 11/15/23 Range/Units 22:28 22:28 22:10 WBC (4.0-10.5) x10^3/uL RBC (4.1-5.6) x10^6/uL Hgb (12.5-18.0) g/dL Hct (42-50) % MCV (78-100) fL MCH (26-32) pg MCHC (32-36) g/dL RDW (11.5-14.0) % Plt Count (150-450) x10^3/uL MPV (7.5-11.0) fL Gran % (36.0-66.0) % Immature Gran % (Auto) (0.00-0.4) % Nucleat RBC Rel Count (0.00-0.1) % Eos # (Auto) (0-0.5) x10^3/uL Immature Gran # (Auto) (0.00-0.03) x10^3u/L Absolute Lymphs (auto) (1.0-4.6) x10^3/uL Absolute Monos (auto) (0.0-1.3) x10^3/uL Absolute Nucleated RBC (0.00-0.01) x10^3u/L Lymphocytes % (24.0-44.0) % Monocytes % (0.0-12.0) % Eosinophils % (0.00-5.0) % Basophils % (0.0-0.4) % Absolute Granulocytes (1.4-6.9) x10^3/uL Basophils # (0-0.4) x10^3/uL D-Dimer < 0.19 (0.0-0.50) mg/L Sodium (135-145) mmol/L Potassium (3.5-5.1) mmol/L Chloride (98-107) mmol/L Carbon Dioxide (22-30) mmol/L Anion Gap (5-15) MEQ/L BUN (9-20) mg/dL Creatinine (0.66-1.25) mg/dL Estimated GFR ML/MIN Glucose (74-106) mg/dL Calcium (8.4-10.2) mg/dL Total Bilirubin (0.2-1.3) mg/dL AST (17-59) U/L ALT (0-50) U/L Alkaline Phosphatase (38-126) U/L Troponin I (0.000-0.033) ng/mL Serum Total Protein (6.3-8.2) g/dL Albumin (3.5-5.0) g/dL Urine Color Yellow (Yellow) Urine Appearance Clear (Clear) Urine pH 6.5 (4.6-8.0) Ur Specific [place] <=1.005 (1.005-1.030) Urine Protein Negative (Negative) Urine Glucose (UA) Negative (Negative) mg/dL Urine Ketones Negative (Negative) Urine Blood Negative (Negative) Urine Nitrite Negative (Negative) Urine Bilirubin Negative (Negative) Urine Urobilinogen 0.2 (0.2) mg/dL Ur Leukocyte Esterase Negative (Negative) U Hyaline Cast (Auto) NONE SEEN (0-2) /LPF Urine Microscopic RBC 0-2 (0-5) /HPF Urine Microscopic WBC 0-2 (0-5) /HPF Ur Epithelial Cells None Seen (None Seen) /HPF Urine Bacteria None Seen (None Seen) /HPF Urine Culture Reflexed NO (NO) Salicylates (2-20) mg/dL Urine Opiates Level NEGATIVE (NEGATIVE) Ur Methadone NEGATIVE (NEGATIVE) Acetaminophen (10-30) ug/ml Urine Barbiturates NEGATIVE (NEGATIVE) Ur Phencyclidine (PCP) NEGATIVE (NEGATIVE) Urine Amphetamine NEGATIVE (NEGATIVE) U Benzodiazepine Level NEGATIVE (NEGATIVE) Urine Cocaine NEGATIVE (NEGATIVE) Urine Marijuana (THC) NEGATIVE (NEGATIVE) Ethyl Alcohol (0-10) mg/dL 11/15/23 11/15/23 11/15/23 Range/Units 22:10 22:10 22:10 WBC 12.4 H (4.0-10.5) x10^3/uL RBC 4.37 (4.1-5.6) x10^6/uL Hgb 12.1 L (12.5-18.0) g/dL Hct 37.0 L (42-50) % MCV 84.7 (78-100) fL MCH 27.7 (26-32) pg MCHC 32.7 (32-36) g/dL RDW 14.1 H (11.5-14.0) % Plt Count 343 (150-450) x10^3/uL MPV 9.8 (7.5-11.0) fL Gran % 75.0 H (36.0-66.0) % Immature Gran % (Auto) 0.3 (0.00-0.4) % Nucleat RBC Rel Count 0.0 (0.00-0.1) % Eos # (Auto) 0.12 (0-0.5) x10^3/uL Immature Gran # (Auto) 0.04 H (0.00-0.03) x10^3u/L Absolute Lymphs (auto) 2.06 (1.0-4.6) x10^3/uL Absolute Monos (auto) 0.86 (0.0-1.3) x10^3/uL Absolute Nucleated RBC 0.00 (0.00-0.01) x10^3u/L Lymphocytes % 16.6 L (24.0-44.0) % Monocytes % 6.9 (0.0-12.0) % Eosinophils % 1.0 (0.00-5.0) % Basophils % 0.2 (0.0-0.4) % Absolute Granulocytes 9.28 H (1.4-6.9) x10^3/uL Basophils # 0.03 (0-0.4) x10^3/uL D-Dimer (0.0-0.50) mg/L Sodium 135 (135-145) mmol/L Potassium 3.6 (3.5-5.1) mmol/L Chloride 104 (98-107) mmol/L Carbon Dioxide 23 (22-30) mmol/L Anion Gap 12.3 (5-15) MEQ/L BUN 23 H (9-20) mg/dL Creatinine 1.32 H (0.66-1.25) mg/dL Estimated GFR 62.5 ML/MIN Glucose 129 H (74-106) mg/dL Calcium 9.4 (8.4-10.2) mg/dL Total Bilirubin 0.50 (0.2-1.3) mg/dL AST 22 (17-59) U/L ALT 19 (0-50) U/L Alkaline Phosphatase 81 (38-126) U/L Troponin I < 0.012 (0.000-0.033) ng/mL Serum Total Protein 9.2 H (6.3-8.2) g/dL Albumin 4.3 (3.5-5.0) g/dL Urine Color (Yellow) Urine Appearance (Clear) Urine pH (4.6-8.0) Ur Specific [place] (1.005-1.030) Urine Protein (Negative) Urine Glucose (UA) (Negative) mg/dL Urine Ketones (Negative) Urine Blood (Negative) Urine Nitrite (Negative) Urine Bilirubin (Negative) Urine Urobilinogen (0.2) mg/dL Ur Leukocyte Esterase (Negative) U Hyaline Cast (Auto) (0-2) /LPF Urine Microscopic RBC (0-5) /HPF Urine Microscopic WBC (0-5) /HPF Ur Epithelial Cells (None Seen) /HPF Urine Bacteria (None Seen) /HPF Urine Culture Reflexed (NO) Salicylates < 1.0 L (2-20) mg/dL Urine Opiates Level (NEGATIVE) Ur Methadone (NEGATIVE) Acetaminophen < 10 L (10-30) ug/ml Urine Barbiturates (NEGATIVE) Ur Phencyclidine (PCP) (NEGATIVE) Urine Amphetamine (NEGATIVE) U Benzodiazepine Level (NEGATIVE) Urine Cocaine (NEGATIVE) Urine Marijuana (THC) (NEGATIVE) Ethyl Alcohol < 10 (0-10) mg/dL - Progress Progress: improved ( changes on today's twelve-lead EKG), re-examined Progress Note: 11/15/23 23:45 Medical decision making and assignment of moderate complexity to this patient's medical issue is based on review of the patient's past medical history, review of the patient's social circumstances at this time, review the patient's medication list, review the patient drug allergy list, history present illness and physical findings on examination. Patient refuses placement of an intravenous line, we will draw a CBC, CMP, troponin level, twelve-lead EKG, acetaminophen level, urinalysis, urine drug triage, viral swabs, monotest, salicylate and acetaminophen level as well as drug alcohol level. Differential diagnosis includes dehydration, electrolyte abnormalities, myocardial infarction, panic attack, illicit drug use, alcohol ingestion Counseled pt/family regarding: lab results, diagnosis, need for follow-up Medical Desision Making - Diagnostic Testing Diagnostic test were ordered, analyzed, and reviewed by me: Yes - Risk of complications Low Risk: Low risk of morbidity from additional dx testing or treatment - Departure Departure Disposition: Home Clinical Impression: Anxiety Condition: Stable Critical Care Time: No Referrals: RUY HOUGH MD [Primary Care Provider] - Follow up/PCP as directed Additional Instructions: Drink plenty of fluids. Take your medication as prescribed. Follow-up with your primary care provider tomorrow, 11/16/2023 to make arrangements for follow- up appointment to be seen in the next 3 to 5 days.
[2023-11-15 22:20] LABS: Absolute Neutrophil Ct (ANC) 9.28 x10^3/uL (1.4-6.9); BASOPHIL % 0.2 % (0.0-0.4); Basophil (Absolute #) 0.03 x10^3/uL (0-0.4); Eosinophil (Absolute #) 0.12 x10^3/uL (0-0.5); Hemoglobin 12.1 g/dL (12.5-18.0); IMMATURE GRAN # 0.04 x10^3u/L (0.00-0.03); IMMATURE GRAN % 0.3 % (0.00-0.4); Lymphocyte (Absolute #) 2.06 x10^3/uL (1.0-4.6); Lymphocytes % 16.6 % (24.0-44.0); Mean Cell Volume 84.7 fL (78-100); Mean Corpuscular Hemoglobin 27.7 pg (26-32); Mean Corpuscular Hgb Concent. 32.7 g/dL (32-36); Mean Platelet Volume 9.8 fL (7.5-11.0); Monocyte (Absolute #) 0.86 x10^3/uL (0.0-1.3); Monocytes % 6.9 % (0.0-12.0); Platelet Count 343 x10^3/uL (150-450); Red Blood Count 4.37 x10^6/uL (4.1-5.6); Red Cell Distribution Width 14.1 % (11.5-14.0); White Blood Count 12.4 x10^3/uL (4.0-10.5)
[2023-11-15 22:36] LABS: ACETAMINOPHEN < 10 ug/ml (10-30); ALBUMIN 4.3 g/dL (3.5-5.0); ALKALINE PHOSPHATASE 81 U/L (38-126); ANION GAP 12.3 MEQ/L (5-15); BLOOD UREA NITROGEN 23 mg/dL (9-20); CHLORIDE 104 mmol/L (98-107); Calcium 9.4 mg/dL (8.4-10.2); Carbon Dioxide 23 mmol/L (22-30); Creatinine 1 1.32 mg/dL (0.66-1.25); EST GLOMERULAR FILTRATION RATE 62.5 ML/MIN; ETHYL ALCOHOL < 10 mg/dL (0-10); Glucose 129 mg/dL (74-106); Potassium 3.6 mmol/L (3.5-5.1); SALICYLATE < 1.0 mg/dL (2-20); SGOT/AST 22 U/L (17-59); SGPT/ALT 19 U/L (0-50); SODIUM 135 mmol/L (135-145); Total Protein 9.2 g/dL (6.3-8.2)
[2023-11-15 22:42] LABS: Appearance Clear (Clear); Bacteria None Seen /HPF (None Seen); Bilirubin Negative (Negative); Blood Negative (Negative); Epithelial Cells None Seen /HPF (None Seen); Glucose, Urine Negative (Negative); Hyaline Casts NONE SEEN /LPF (0-2); Ketones Negative (Negative); Leukocyte Esterase Negative (Negative); Nitrite Negative (Negative); Ph 6.5 (4.6-8.0); Protein,Urine Dip Negative (Negative); RBC 0-2 /HPF (0-5); Specific Gravity <=1.005 (1.005-1.030); Urobilinogen 0.2 mg/dL (0.2); WBC 0-2 /HPF (0-5)
[2023-11-15 22:43] LABS: ADD URINE CULTURE? NO (NO)
[2023-11-15 22:56] LABS: Amphetamine,Urine NEGATIVE (NEGATIVE); Barbiturate,Urine NEGATIVE (NEGATIVE); Benzodiazepine,Urine NEGATIVE (NEGATIVE); Cocaine,Urine NEGATIVE (NEGATIVE); Methadone,Urine NEGATIVE (NEGATIVE); Opiate,Urine NEGATIVE (NEGATIVE); PCP,Urine NEGATIVE (NEGATIVE); THC,Urine NEGATIVE (NEGATIVE)
[2023-11-15] MEDS ORDERED: Ativan 2 MG/1 ML VIAL ONE (23:35)
[2023-11-15] MEDS: Ativan 2 MG/1 ML VIAL IM ONE (23:51)
[2023-11-15] MEDS: Ativan 2 MG/1 ML VIAL IV ONE (23:51)
[2023-11-16 06:05] VITALS: O2SAT 97
[2023-11-16 09:08] VITALS: BP 153/103; PULSE 90; RESP 18
== END 2023-11-16 09:05 | disposition home or self-care (01) ==
LOC: ED 21:34
DX: F41.9 Anxiety disorder, unspecified (principal); I10 Essential (primary) hypertension; E78.5 Hyperlipidemia, unspecified; E11.9 Type 2 diabetes mellitus without complications; Z79.84 Long term (current) use of oral hypoglycemic drugs; Z79.899 Other long term (current) drug therapy; Z63.32 Other absence of family member
CPT/HCPCS: 36415; 80053; 80143; 80179; 80307; 81001; 82077; 84484; 85025; 85379; 93005; 93041; 96372; 99284; J2060

== ENCOUNTER 2024-11-25 22:17 | Emergency (ER) | payer MEDICARE ==
[2024-11-25 22:31] VITALS: RESP 18; TEMP 97.4
[2024-11-25 23:17] VITALS: BP 127/88; PULSE 88; O2SAT 97
--- NOTE | 2024-11-25 23:23 | ERPHSYRPT ---
- History of Present Illness Time Seen by Provider: 11/25/24 22:18 Source: patient, family, EMS Patient Subjective Stated Complaint: pt states that he was stung by a wasp 2 times Triage Nursing Assessment: pt came into the er via ambulance; pt ambulated to cot per self; pt is axo x3; pt is anxious; c/o bug bite; no puncture lamont, redness, or swelling present; skin PDW; no respiratory distress present; vitals wnl Physician History: 59-year-old male with history of anxiety/depression/intellectual disability/hypertension/hyperlipidemia/GERD is brought in the ER by EMS with a complains of wasp stung on the right forearm x 2 earlier this evening. Patient apparently lives with his parents and brother who were not around and he could not get hold of him. Patient called EMS and wanted to be evaluated. Patient reports his symptoms of pain are resolved. Does not have any stung lamont. Has no difficulty breathing, palpitations, swelling of tongue,'s sore throat or scratchiness in the throat/throat closing sensations. Of note patient has intellectual disability and when his family leaves without informing him and he cannot get hold, gets anxious and frustrated and calls 911 and have done in the past as well reported by mom. Patient is not in any distress, clear lungs, stable vitals, no signs of cellulitis, stung nicolas, intact range of motion of the wrist elbow. I believe patient symptoms are secondary to anxiety, discussed with mom which agrees and patient is stable for discharge. Allergies/Adverse Reactions: latex [Latex] Allergy (Verified 11/25/24 22:19) BLEACH Allergy (Mild, Uncoded 11/25/24 22:19) Home Medications: Levothyroxine Sodium 100 Mcg [Synthroid 100 Mcg] 50 mcg PO DAILY 05/28/16 [History] Omeprazole [Prilosec] 40 mg PO BID 05/28/16 [History] Rosuvastatin Calcium [Crestor] 10 mg PO DAILY 05/28/16 [History] Docusate Sodium 100 mg [Docusate Sodium 100 MG] 100 mg PO BID 06/27/17 [History] Multivitamin W-Minerals/Lutein [Cerovite Silver Tablet] 1 each PO DAILY 06/27/17 [History] lamoTRIgine [Lamictal] 150 mg PO HS 09/02/18 [History] Fluoxetine HCl 20 mg PO DAILY 11/08/18 [History] lisinopriL [Lisinopril] 5 mg PO DAILY 11/08/18 [History] Metformin HCl 500 mg [Glucophage 500 MG] 1 tablet PO BID 04/20/20 [History] Travorpost Ophth [Travatan 0.004% Opth Mary] 1 drop OP BID 04/20/20 [History] risperiDONE [Risperdal] 0.5 mg PO BID 04/20/20 [History] hydrOXYzine HCL [Hydroxyzine HCl] 10 mg PO DAILY PRN PRN 12/04/20 [History] Hx Tetanus, Diphtheria Vaccination/Date Given: Yes Hx Influenza Vaccination/Date Given: No Hx Pneumococcal Vaccination/Date Given: No Travel Risk - International Travel Have you traveled outside of the country in past 3 weeks: No - Emerging Infectious Disease Are you exhibiting symptoms associated with any current EIDs: No - Review of Systems Constitutional: No Symptoms Eyes: No Symptoms Ears, Nose, & Throat: No Symptoms Respiratory: No Symptoms Cardiac: No Symptoms Abdominal/Gastrointestinal: No Symptoms Musculoskeletal: No Symptoms Neurological: No Symptoms Psychological: Anxiety Endocrine: No Symptoms Hematologic/Lymphatic: No Symptoms - Past Medical History Pertinent Past Medical History: Yes Neurological History: Other ENT History: Other Cardiac History: No Pertinent History Respiratory History: No Pertinent History Endocrine Medical History: Diabetes Type II Musculoskeletal History: Other GI Medical History: Esophageal Disorder, GERD History: No Pertinent History Psycho-Social History: Anxiety, Depression, Other Male Reproductive Disorders: No Pertinent History Other Medical History: 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 EXPLOSIVE DISORDER. Mild Mental Retardation. Behavior Disorder. 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 - Past Surgical History Past Surgical History: Yes Neuro Surgical History: No Pertinent History Cardiac: No Pertinent History Respiratory: No Pertinent History Gastrointestinal: Cholecystectomy, Hernia Repair Genitourinary: No Pertinent History Musculoskeletal: No Pertinent History Male Surgical History: No Pertinent History Other Surgical History: TONSILECTOMY , FOOT SURGERY, AMP OF BIG TOE AT 2 Significant Family History: no pertinent family hx - Social History Smoking Status: Never smoker Exposure to second hand smoke: No Drug Use: none - Social Determinants of Health Will the patient participate in the screening: Declined to provide - Nursing Vital Signs Nursing Vital Signs: Initial Vital Signs Temperature 97.4 F 11/25/24 22:19 Pulse Rate 82 11/25/24 22:19 Respiratory Rate 18 11/25/24 22:19 Blood Pressure 130/90 11/25/24 22:19 O2 Sat by Pulse Oximetry 96 11/25/24 22:19 Pain Scale Pain Intensity 8 - Physical Exam General Appearance: no apparent distress, alert, anxiety Ears, Nose, Throat Exam: normal ENT inspection Neck Exam: normal inspection, non-tender, supple, full range of motion Respiratory Exam: normal breath sounds, lungs clear Cardiovascular Exam: regular rate/rhythm, normal heart sounds Back Exam: normal inspection, normal range of motion Extremity Exam: normal inspection, normal range of motion, pelvis stable Neurologic Exam: alert, oriented x 3, cooperative, sensation nml, No motor deficits Skin Exam: normal color SpO2 Interpretation: normal SpO2: 97 O2 Delivery: Room Air - Progress Progress: improved Progress Note: 11/25/24 23:21 59-year-old male with history of anxiety/depression/intellectual disability/hypertension/hyperlipidemia/GERD is brought in the ER by EMS with a complains of wasp stung on the right forearm x 2 earlier this evening. Patient apparently lives with his parents and brother who were not around and he could not get hold of him. Patient called EMS and wanted to be evaluated. Patient reports his symptoms of pain are resolved. Does not have any stung lamont. Has no difficulty breathing, palpitations, swelling of tongue,'s sore throat or scratchiness in the throat/throat closing sensations. Of note patient has intellectual disability and when his family leaves without informing him and he cannot get hold, gets anxious and frustrated and calls 911 and have done in the past as well reported by mom. Patient is not in any distress, clear lungs, stable vitals, no signs of cellulitis, stung nicolas, intact range of motion of the wrist elbow. I believe patient symptoms are secondary to anxiety, discussed with mom which agrees and patient is stable for discharge. Counseled pt/family regarding: diagnosis, need for follow-up Medical Desision Making - Independent Historian Additional History obtained from: Mother, [employer]/EMT - Diagnostic Testing Diagnostic test were ordered, analyzed, and reviewed by me: No - Risk of complications Minimal Risk: Minimal risk of morbidity - Departure Departure Disposition: Home Clinical Impression: Anxiety, Worried well Condition: Stable Critical Care Time: No Referrals: GIANLUCA,RUY HORACE, MD [Primary Care Provider, [facility]] - Follow up with PCP 1 day Instructions: Anxiety in adults - ED discharge instructions Additional Instructions: Follow-up with primary care for reevaluation. Return to ER if having any rash, pain, swelling etc.
== END 2024-11-25 23:28 | disposition home or self-care (01) ==
LOC: ED 22:17
DX: Z71.1 Person with feared health complaint in whom no diagnosis is made (principal); F41.9 Anxiety disorder, unspecified; Z79.899 Other long term (current) drug therapy
CPT/HCPCS: 99281; 99284